=== PATIENT | male | born 1960 | race Caucasian/White ===

== ENCOUNTER 2020-04-03 06:45 | Outpatient (REF) | payer OTHER, SELFPAY | END 2020-04-03 06:46 | disposition home or self-care (01) | LOC: HO.LAB 06:45 | PROVIDERS: Visit Provider Internal Medicine | DX: Z20.828 Contact with and (suspected) exposure to other viral communicable diseases (principal) | CPT/HCPCS: 36415; C9803; U0003 ==

== ENCOUNTER 2020-10-21 09:16 | Emergency (ER) | payer OTHER, SELFPAY ==
--- NOTE | ~2020-10-21 | CT_ITS ---
EXAMINATION: CT ABDOMEN AND PELVIS WITHOUT CONTRAST CLINICAL INFORMATION: Right lower back pain. COMPARISON: None TECHNIQUE: Multidetector volumetric imaging was performed from the superior aspect of the liver through the pubic symphysis. Sagittal and coronal reformatted images were obtained on the technologist's workstation. This CT examination was performed using dose optimization techniques as appropriate, variously including the following: *Automated exposure control *Adjustment of mA and/or kV according to patient size (this includes techniques or standardized protocols for targeted exams where dose is matched to indication/reason for exam; i.e. extremities or head) *Use of iterative reconstruction technique DLP: 1048 mGy-cm FINDINGS: LUNG BASES: The visualized lung bases are unremarkable. No pleural or pericardial effusion. Coronary artery calcification present. LIVER, GALLBLADDER, AND BILIARY TREE: There is a region of calcifications seen within segment 7 of the liver. No intrahepatic bile duct dilatation is noted. The gallbladder is unremarkable with no evidence of radiopaque gallstones, gallbladder wall thickening, or obvious pericholecystic inflammatory changes. PANCREAS: Unremarkable. SPLEEN: Unremarkable. A few splenic calcified granulomas are evident. ADRENAL GLANDS: Unremarkable. KIDNEYS AND URETERS: Right kidney: There is an approximately 8.6 cm simple appearing cyst mid posterior aspect of the right kidney. No hydronephrosis. No hydroureter. No calculi identified. No suspicious solid masses seen. Left kidney: There is an exophytic 1.4 cm cyst midpole laterally. No suspicious solid mass identified. No hydronephrosis or hydroureter. No calculi are identified. BLADDER: Unremarkable. GASTROINTESTINAL TRACT: No dilated loops of large or small bowel. No free air or free fluid. No pericolonic inflammatory change. The appendix is not visualized. ABDOMINAL WALL: No significant hernia is appreciated. LYMPH NODES: No lymphadenopathy identified. VASCULAR: There is moderate calcification of the infrarenal abdominal aorta without evidence of abdominal aortic aneurysm. PELVIC VISCERA: Prostate calcification present. OSSEOUS STRUCTURES: No suspicious destructive bony lesions identified. There is multilevel degenerative disc disease seen most prominent within the lower thoracic and upper lumbar spine with vacuum disc phenomena seen at the L2-L3 level. CT/CT abdomen pelvis wo con IMPRESSION: Old granulomatous disease. No evidence of obstructive uropathy.
[2020-10-21 09:33] VITALS: BP 139/80; PULSE 57; RESP 18; TEMP 35.7; O2SAT 98; BMI 39.5
--- NOTE | 2020-10-21 10:05 | ED.BACK ---
HPI - Back Pain/Injury General Chief Complaint: Back Pain/Injury Stated Complaint: [facility] Time Seen by Provider: 10/21/20 12:00 Source: patient Mode of arrival: ambulatory Limitations: no limitations History of Present Illness HPI Narrative: Patient presents to ED for right lower back pain. Patient thinks might be kidney stones. Patient states pain is worse on movement, heavy lifting, and bending down. Patient denies any nausea, vomiting, fever, chills, dysuria, hematuria, any recent trauma to the abdomen, back, flank. Related Data Previous Rx's Medication Instructions Recorded cyclobenzaprine 10 mg PO TID PRN #28 tab 10/21/20 Allergies Allergy/AdvReac Type Severity Reaction Status Date / Time No Known Allergies Allergy Verified 10/21/20 10:04 Review of Systems Review of Systems: Yes all other systems are reviewed and are negative Constitutional: Constitutional: Reports as per HPI and Reports no additional constitutional complaints Eyes: Eyes: Reports as per HPI and Reports no additional eye complaints ENT: Reports system reviewed and no additional complaints, except as documented and Reports as per HPI Cardiovascular: Cardiovascular: Reports as per HPI and Reports no additional cardiovascular complaints Respiratory: Respiratory: Reports as per HPI and Reports no additional respiratory complaints Gastrointestinal: Gastrointestinal: Reports as per HPI and Reports no additional gastrointestinal complaints Genitourinary: Genitourinary: Reports no additional male genitourinary complaints and Reports as per HPI Musculoskeletal: Musculoskeletal: Reports no additional musculoskeletal complaints, Reports as per HPI and Reports back pain (Right lower back) Neurologic: Reports system reviewed and no additional complaints, except as documented and Reports as per HPI Psychiatric: Psychiatric: Reports no additional psychiatric complaints and Reports as per HPI [facility] Past Medical History Medical History (Updated 10/21/20 @ 12:10 by JORDAN Billings) High cholesterol Social History Social History Advance Directives: Yes Advance Directives Information Provided: Yes Advance Directives on File: No Physical Exam Vital Signs: Vital Signs: Last Vital Signs Temp 96.3 F L 10/21/20 09:33 Pulse 58 10/21/20 10:14 Resp 12 10/21/20 10:14 BP 132/86 10/21/20 10:14 Pulse Ox 98 10/21/20 10:14 Body Mass Index 39.5 Const: General: cooperative, healthy appearing, comfortable, no acute distress, well developed, alert, awake and Physically active Orientation/consciousness: patient oriented x3 HENMT: Head: Yes normal to inspection, Yes No palpable skull fracture present, Yes normocephalic, Yes atraumatic and No abrasion Eyes: General: appearance normal, both eyes and all related structures Neck: Neck: Yes normal visual inspection, Yes full ROM, Yes no lymphadenopathy, Yes no meningeal signs, Yes trachea midline, Yes supple and No tender Chest: Chest palpation & inspection: normal inspection of the chest and normal palpation of entire chest wall Resp: Effort & Inspection: normal respiratory effort and able to speak in complete sentences Cardio: Jugular venous distension: no JVD Heart sounds: S1 normal heart sound present and S2 normal heart sound present GI: Inspection: Yes normal to inspection and No abdominal wall ecchymosis Palpation (GI): Soft to palpation, not firm, nontender, no guarding and not rigid : General: No CVA tenderness and Yes no CVA tenderness Back/Spine/Pelvis: Back: no CVA tenderness, No CVA tenderness and back tenderness Back/spine/pelvis image: 1. Area of tenderness on palpation. Negative for any ecchymosis, or redness. Skin: General skin exam: no rashes or lesions noted and elasticity normal Neuro: General: patient oriented x3, gait normal, no meningeal signs and CN's II-XI intact bilaterally Cranial nerves: Yes CN's II-XII intact bilaterally Extrem: General: Yes normal to inspection and Yes full ROM Psych: Appearance: grossly normal, well kempt and not disheveled Course Course Course Narrative: Low suspicion for kidney stones to patient pain is in lower back and negative for CD of flanks, but due to age will do basic labs sent for trace CT to check for kidney stones or any lumbar radiculopathy Reevaluation(s) Reevaluation #1: Labs negative for elevated white blood cell count. Urine came back negative for any UTI or blood. Chemistry shows normal kidney function. CT scan shows lumbar radiculopathy. CT scan negative for any kidney stones, hydronephrosis, any other abdominal etiology. CT scan shows kidney cyst. Patient made aware of CT readings. Patient may order labs. Patient states he will take his Advil at home. Time: 12:50 MDM - Back Pain/Injury MDM Narrative Medical decision making narrative: Lumbar radiculopathy Lab Data Result diagrams: 10/21/20 10:21 10/21/20 10:21 Labs: Lab Results 10/21/20 10/21/20 10/21/20 Range/Units 09:48 10:21 10:21 WBC 5.8 (4.8-10.8) X10*3/uL RBC 4.34 L (4.60-5.80) X10*6/uL Hgb 13.0 L (14.0-18.0) g/dl Hct 37.3 L (42-52) % MCV 85.9 (80-98) fL MCH 30.0 (27.0-33.0) pg MCHC 34.9 (31.0-36.0) g/dl RDW 12.6 (11.0-16.0) % Plt Count 166 (160-400) X10*3/uL MPV 10.6 (9.4-12.4) fL Immature Gran % (Auto) 0.3 (0.0-0.4) % Neut % (Auto) 65.6 (45-73) % Lymph % (Auto) 23.3 (20-40) % Victoria % (Auto) 8.6 (2-11) % Eos % (Auto) 1.9 (0-4) % Baso % (Auto) 0.3 (0-2) % Lymph # (Auto) 1.4 (1.2-4.9) X10*3/uL Victoria # (Auto) 0.5 (0.1-1.2) X10*3/uL Eos # (Auto) 0.1 (0.0-0.4) X10*3/uL Baso # (Auto) 0.0 (0.0-0.2) X10*3/uL Abs Immat Gran (auto) 0.02 (0.00-0.03) X10*3/uL Absolute Neuts (auto) 3.8 (2.0-8.3) X10*3/uL Absolute Nucleated RBC 0.000 (0.0-0.012) X10*3/uL Nucleated RBC % (auto) 0.0 (0.0-0.2) /100WBC Sodium 139 (135-145) mmol/L Potassium 3.9 (3.3-5.1) mmol/L Chloride 108 (96-108) mmol/L Carbon Dioxide 23 (22-29) mmol/L Anion Gap 12 (12-20) BUN 16 (9-16) mg/dL Creatinine 1.04 (0.5-1.4) mg/dL Estim Creat Clear Calc 107.6 Estimated GFR > 60 Random Glucose 107 (60-115) mg/dL Calcium 9.0 (8.4-10.2) mg/dL Total Bilirubin 0.7 (0.0-1.0) mg/dL AST 19 (5-37) U/L ALT 17 (0-40) U/L Alkaline Phosphatase 72 (39-117) U/L Total Protein 6.3 L (6.5-8.0) g/dL Albumin 4.0 (3.5-5.0) g/dL Urine Color YELLOW Urine Appearance CLEAR Urine pH 6.0 (5.0-8.0) Ur Specific [place] 1.015 (1.005-1.025) Urine Protein NEG (NEG-TRACE) MG/DL Urine Glucose (UA) NEG (NEG) MG/DL Urine Ketones NEG (NEG) MG/DL Urine Blood NEG (NEG) Urine Nitrite NEG (NEG) Ur Leukocyte Esterase NEG (NEG) Urine RBC 0 (0) /HPF Urine WBC 0-2 (0-4) /HPF Ur Squamous Epith Cells NONE /LPF Urine Bacteria NONE /LPF Urine Mucus 1+ /LPF Discharge Plan Discharge Clinical Impression: Lumbar radiculopathy, Back pain Patient Disposition: Home, Self-Care Instructions: Sciatica (ED), Acute Low Back Pain (ED), Lumbar Radiculopathy (ED) Additional Instructions: Your CT scan came back negative for any kidney stones. The CT scan showed lumbar arthritis. Your CT scan shows benign kidney cyst. Your Labs show normal kidney function. Your white blood cell count came back normal. Your urine came back negative for UTI. Return to ED for worsening back pain, urinary/bowel incontinence, flank pain, testicular pain, dysuria, hematuria, abdominal pain, nausea, vomiting, fever, chills, or any other concerning symptoms. Please follow up for PCP Prescriptions: New cyclobenzaprine 10 mg tablet 10 mg PO TID PRN (Reason: pain) Qty: 28 RF: 0 Interventions: ED Discharge Assessment Last Done: 10/21/20 12:44 Discharge Date/Time: 10/21/20 12:45 Print Language: Arabic
[2020-10-21 10:14] VITALS: BP 132/86; PULSE 58; RESP 12; O2SAT 98
[2020-10-21 10:15] LABS: Glucose Urine UA NEG (NEG); Leukocyte Esterase Urine NEG (NEG); Nitrite Urine NEG (NEG); Specific Gravity - Urine 1.015 (1.005-1.025); Urine Blood NEG (NEG); Urine Ketones NEG (NEG); Urine Protein NEG (NEG-TRACE)
[2020-10-21 10:18] LABS: Appearance Urine CLEAR; Color Urine YELLOW
[2020-10-21 10:28] LABS: Mucus Urine 1+ /LPF; RBC Urine 0 /HPF (0); WBC Urine 0-2 /HPF (0-4)
[2020-10-21 10:31] LABS: Basophils Percent Auto 0.3 % (0-2); Eosinophils Absolute Auto 0.1 X10*3/uL (0.0-0.4); Eosinophils Percent Auto 1.9 % (0-4); Hematocrit 37.3 % (42-52); Imm Gran Abs Auto 0.02 X10*3/uL (0.00-0.03); Imm Gran Pct Auto 0.3 % (0.0-0.4); Lymphocytes Absolute Auto 1.4 X10*3/uL (1.2-4.9); Lymphocytes Percent Auto 23.3 % (20-40); Mean Corpuscular HGB Conc 34.9 g/dl (31.0-36.0); Mean Corpuscular Volume 85.9 fL (80-98); Mean Platelet Volume 10.6 fL (9.4-12.4); Monocytes Absolute Auto 0.5 X10*3/uL (0.1-1.2); Monocytes Percent Auto 8.6 % (2-11); Neutrophils Absolute Auto 3.8 X10*3/uL (2.0-8.3); Neutrophils Percent Auto 65.6 % (45-73); Platelet Count 166 X10*3/uL (160-400); Red Blood Count 4.34 X10*6/uL (4.60-5.80); Red Cell Distribution Width 12.6 % (11.0-16.0); White Blood Count 5.8 X10*3/uL (4.8-10.8)
[2020-10-21 10:32] LABS: MANUAL DIFF FLAG NO
[2020-10-21] MEDS: Ketorolac Tromethamine 15 MG/ML VIAL IM ×2 (10:36→10:37)
[2020-10-21 10:54] LABS: Alanine Aminotransferase 17 U/L (0-40); Alkaline Phosphatase 72 U/L (39-117); Anion Gap 12 (12-20); Aspartate Amino Transferase 19 U/L (5-37); Bilirubin Total 0.7 mg/dL (0.0-1.0); Blood Urea Nitrogen 16 mg/dL (9-16); Carbon Dioxide 23 mmol/L (22-29); Chloride 108 mmol/L (96-108); Creatinine Clr Calc Pharmacy 107.6; Estimated Glomerular Filt Rate > 60; Glucose Random 107 mg/dL (60-115); Potassium 3.9 mmol/L (3.3-5.1); Sodium 139 mmol/L (135-145); Total Protein 6.3 g/dL (6.5-8.0)
== END 2020-10-21 12:45 | disposition home or self-care (01) ==
PROVIDERS: Physician Assistant; Emergency Provider Emergency Medicine
DX: M54.5 Low back pain (principal); M54.16 Radiculopathy, lumbar region
CPT/HCPCS: 36415; 74176; 80053; 81001; 85025; 96372; 99284; J1885

== ENCOUNTER 2021-02-22 18:19 | Emergency (ER) | payer OTHER, SELFPAY ==
[2021-02-22 18:24] VITALS: BP 158/97; PULSE 65; RESP 18; TEMP 36.1; O2SAT 99; BMI 37.5
--- NOTE | 2021-02-22 19:05 | ED_ITS ---
HPI - Ear Problem General Chief complaint: Ear Problems Stated complaint: FB in ears Time Seen by Provider: 02/22/21 18:49 Source: patient and family Mode of arrival: ambulatory Limitations: no limitations History of Present Illness HPI Narrative: 61-year-old male with history of hearing loss requiring bilateral hearing aids presents to the ER with small part of the hearing aid stuck in both of his ear canals. He reports in his right ear he has had a small piece of the hearing aid retained in the ear for about 1 month he thinks. It has not been bothering him. He reports for the last 1 week when he removed the hearing aid on the left side he noticed a small piece was also missing. This has happened to him before and he has required evaluation at urgent care clinic where they irrigated the ears and were able to get the pieces out. He denies any drainage from the ears, no bleeding, no change in his hearing from baseline. MD Complaint: foreign body Location: bilateral Duration: constant Severity: mild Relieving factors: nothing Exacerbating factors: nothing Discharge from ear: no Associated symptoms ear: decreased hearing (Chronic) Treatment prior to arrival: none Related Data Previous Rx's Medication Instructions Recorded cyclobenzaprine 10 mg tablet 10 mg PO TID PRN #28 tab 10/21/20 Allergies Allergy/AdvReac Type Severity Reaction Status Date / Time latex Allergy Rash Verified 02/22/21 18:23 Penicillins Allergy Rash Verified 02/22/21 18:23 Review of Systems Review of Systems: Constitutional: No Fever, No Chills ENT/Mouth: +FB in bilateral ears, No ear drainage, +NINILCHIK Cardiovascular: No Chest Pain, No SOB Respiratory: No Cough, No Sputum Gastrointestinal: No Nausea, No Vomiting Musculoskeletal: No joint pain, No Myalgias Skin: No Skin Lesions, No rash Neuro: No Dizziness, No Headache Heme/Lymph: No Lymphadenopathy PMFSH Past Medical History Medical History (Updated 02/22/21 @ 19:06 by JORDAN Hughes) High cholesterol Social History Social History Advance Directives: No Advance Directives Information Provided: No Physical Exam Vital Signs: Vital Signs: Last Vital Signs Temp 97.0 F 02/22/21 18:24 Pulse 65 02/22/21 18:24 Resp 18 02/22/21 18:24 BP 158/97 H 02/22/21 18:24 Pulse Ox 99 02/22/21 18:24 Body Mass Index 37.5 Appearance: Alert. Oriented X3. No acute distress. HEENT: normal external inspection. Bilateral ear canals with visible clear disc like piece of plastic imbedded within the distal ear canal and both ears. No impacted cerumen, no associated inflammatory changes, no bleeding. CVS: Normal heart rate and rhythm. Pulses normal. Respiratory: No respiratory distress. Skin: Skin warm and dry. Normal skin color. Normal skin turgor. No rashes. Extremities: Normal inspection, normal range of motion. Neuro: Oriented X 3. No motor deficit. No sensory deficit. Course Course Course Narrative: 61-year-old male presenting with bilateral ear canals wit retained pieces of hearing aids, left side has been present for 1 week and right-sided has been present for a month or more. No ear pain or sign of infection. Exam reveals visible foreign bodies consistent with pieces of hearing aids. Will attempt removal with alligator forceps Reevaluation(s) Reevaluation #1: Successful removal with alligator forceps of the foreign bodies from both ears. No signs of trauma or bleeding. Patient tolerated well. Stable for discharge home. Procedures FB Removal Ear Location: ear canal (L) Foreign Body Suspected: other plastic TM intact pre-procedure: yes Foreign Body Removed: yes Foreign Body Removal Technique: instrumentation Tympanic Membrane Intact Post Procedure: Yes Patient Tolerated Procedure: well Complications: none Additional Comments: Same procedure was performed on the right side with the same outcome, no complications and tympanic membrane was intact. Critical Care Time Critical Care Time Critical Care Time: No Discharge Plan Discharge Clinical Impression: Foreign body in ear Qualifiers: Encounter type: initial encounter Laterality: unspecified laterality Qualified Code(s): T16.9XXA - Foreign body in ear, unspecified ear, initial encounter Patient Disposition: Home, Self-Care Instructions: Ear Foreign Body (ED) Additional Instructions: Alligator forceps were used to remove the retained hearing aid piece in your ears. There was no signs of trauma, no bleeding after the procedure. Follow-up with your doctor as needed. Prescriptions: No Action cyclobenzaprine 10 mg tablet 10 mg PO TID PRN (Reason: pain) Qty: 28 RF: 0
== END 2021-02-22 19:21 | disposition home or self-care (01) ==
PROVIDERS: Emergency Provider Internal Medicine
DX: T16.2XXA Foreign body in left ear, initial encounter (principal); T16.1XXA Foreign body in right ear, initial encounter; X58.XXXA Exposure to other specified factors, initial encounter
CPT/HCPCS: 69200; 99283; 99284

== ENCOUNTER 2021-10-01 06:20 | Emergency (ER) | payer OTHER, SELFPAY ==
--- NOTE | ~2021-10-01 | XR_ITS ---
EXAMINATION: XR CHEST CLINICAL INFORMATION: Chest pain. COMPARISON: None TECHNIQUE: Frontal view of the chest was obtained. FINDINGS: Lungs are well-inflated and clear. Trachea is midline in position. No interstitial disease, consolidation or mass. No pleural effusion or pneumothorax. Cardiac silhouette and pulmonary vessels are normal in size. The mediastinum and clotilde have normal contour. The visualized bones and upper abdomen are unremarkable. XR/XR chest 1V IMPRESSION: No acute cardiopulmonary abnormality.
[2021-10-01 06:38] VITALS: BP 193/91; PULSE 75; RESP 13; TEMP 36.6; O2SAT 98; BMI 38.7
[2021-10-01 06:42] LABS: Hematocrit 41.6 % (42.0-52.0); Hemoglobin 14.2 g/dl (14.0-18.0); Mean Corpuscular HGB Conc 34.1 g/dl (31.0-36.0); Mean Corpuscular Hemoglobin 29.2 pg (27.0-33.0); Mean Corpuscular Volume 85.6 fL (80.0-98.0); Mean Platelet Volume 10.3 fL (9.4-12.4); Platelet Count 164 X10*3/uL (160-400); Red Blood Count 4.86 X10*6/uL (4.60-5.80); Red Cell Distribution Width 12.5 % (11.0-16.0); White Blood Count 6.8 X10*3/uL (4.8-10.8)
[2021-10-01 06:44] LABS: Prothrombin Time 11.2 SEC (10.0-13.1)
[2021-10-01 06:52] LABS: COVID-19 Test Negative (Negative)
[2021-10-01] MEDS: Aspirin 81 MG TAB.CHEW 324 MG PO (06:54)
--- NOTE | 2021-10-01 06:57 | ECG_ITS ---
Test Reason : CHEST PAIN Blood Pressure : / mmHG Vent. Rate : 080 BPM Atrial Rate : 080 BPM P-R Int : 162 ms QRS Dur : 094 ms QT Int : 394 ms P-R-T Axes : 060 035 057 degrees QTc Int : 454 ms Normal sinus rhythm Nonspecific ST abnormality Abnormal ECG No previous ECGs available Referred By: Cristina Gipson Electronically Signed By:Charli Yap
--- NOTE | 2021-10-01 06:58 | ED_ITS ---
HPI - Chest Pain General Chief Complaint: Chest Pain Stated Complaint: Chest discomfort/Sob Time Seen by Provider: 10/01/21 06:30 Source: patient and family (Spouse) Mode of arrival: ambulatory Limitations: no limitations History of Present Illness HPI narrative: 61 years old male came in for evaluation of CP/SOB. Patient's symptoms started a week ago, feels exertional dyspnea, mild lower extremities swelling, no orthopnea, no PND, also coughing spells that usually triggered by gagging himself after brushing his teeth when patient have the coughing spells he feel lightheadedness and near syncopal episodes, patient also been feeling chest fullness after eating meals in particular breakfast in the morning. Patient admitted to having stress in his job. Patient with history of hypertension he took himself off of the medication few years ago. Related Data Home Medications Medication Instructions Recorded Confirmed rosuvastatin 5 mg tablet 1 tab PO DAILY 10/01/21 10/01/21 Allergies Allergy/AdvReac Type Severity Reaction Status Date / Time latex Allergy Rash Verified 02/22/21 18:23 Penicillins Allergy Rash Verified 02/22/21 18:23 Review of Systems Review of Systems: All other systems are reviewed and are negative Constitutional: Reports as per HPI and Reports no additional constitutional complaints Eyes: Reports as per HPI and Reports no additional eye complaints Reports system reviewed and no additional complaints, except as documented Cardiovascular: Reports as per HPI and Reports no additional cardiovascular complaints Respiratory: Reports as per HPI and Reports no additional respiratory complaints Gastrointestinal: Reports as per HPI and Reports no additional gastrointestinal complaints Genitourinary: Reports no additional female genitourinary complaints Musculoskeletal: Reports no additional musculoskeletal complaints Skin/Breast: Reports system reviewed and no additional complaints, except as docu Psychiatric: Reports no additional psychiatric complaints Endocrine: Reports no additional endocrine complaints Hematologic/Lymphatic: Reports no additional hematologic/lymphatic complaints Allergic/Immunologic: Reports no additional allergic/immunologic complaints Reports system reviewed and no additional complaints, except as documented and Reports Abnormal speech present [facility] Past Medical History Medical History High cholesterol Social History Social History Patient Tobacco Use Status: Never used Tobacco Use of substances other than those prescribed or required for medical reasons: No Advance Directives: No Physical Exam Vital Signs: Vital Signs: Last Vital Signs Temp 97.9 F 10/01/21 13:46 Pulse 56 10/01/21 13:46 Resp 13 10/01/21 13:46 BP 162/86 H 10/01/21 13:46 Pulse Ox 99 10/01/21 13:46 O2 Del Method 10/01/21 13:46 BMI result Body Mass Index 30.1 Vital signs have been reviewed as appeared to be correct. Blood pressure elevated. Heart rate normal. Respiration rate normal. Temperature normal. Oxygen saturation normal. Appearance: Alert. Oriented X3. No acute distress, ap pear anxious. Head: Normal external exam. Normocephalic. Atraumatic. No Robbins signs noted. No raccoon eyes noted Eyes: PERRLA. EOMI. Conjunctiva and sclera normal. Eyelids normal. ENT: TM's Normal. Pharynx normal. Uvula midline. Moist mucous membranes. No trismus noted. No drooling noted. No muffled voice noted. Neck: Normal inspection. Neck supple. FROM. No adenopathy. Thyroid Normal. No meningeal signs. No neck mass noted. CVS: Normal heart rate and rhythm. Heart sound normal. No murmurs noted. Pulses normal throughout. Respiratory: No respiratory distress. Painless inspiration. Breath sounds normal. No wheezes/rales/rhonchi noted. Chest nontender. No accessory muscle usage noted or decreased air movement noted. Abdomen: Soft and nontender. Bowel sounds normal in all 4 quadrants. No distention noted. No organomegaly noted. No visible injury noted. Back: No CVA tenderness. Full range of motion noted. Skin: Skin warm and dry. Normal skin color. Normal skin turgor. No rashes/lesions/lacerations noted. Extremities: No lower extremity edema. Extremities exhibit normal range of motion. Extremities nontender. Neuro: Oriented X 3. Cranial nerve exam: II-XII are grossly intact No motor deficit. No sensory deficit. Reflexes normal. Course Course Course Narrative: Assessment and plan. 61-year-old male came in for evaluation of exertional dyspnea and atypical fullness of the chest after eating, nonspecific ST-T changes with elevated troponin, the case discussed with Dr. Yap from transportation maintenance specialist who recommended to admit the patient for inpatient stress test and blood pressure control. Reevaluation(s) Reevaluation #1: Patient was seen and evaluated by Dr. Yap in the emergency department recommended started the patient on heparin, bedside echo, transferred to [facility]. Dr. Yap is the accepting physician at [facility]. Time: 15:49 MDM - Chest Pain Lab Data Attestation: I reviewed the patient's lab results. Result diagrams: 10/01/21 12:32 10/01/21 06:33 Labs: Lab Results 10/01/21 10/01/21 10/01/21 Range/Units 06:33 06:33 06:33 WBC 6.8 (4.8-10.8) X10*3/uL RBC 4.86 (4.60-5.80) X10*6/uL Hgb 14.2 (14.0-18.0) g/dl Hct 41.6 L (42.0-52.0) % MCV 85.6 (80.0-98.0) fL MCH 29.2 (27.0-33.0) pg MCHC 34.1 (31.0-36.0) g/dl RDW 12.5 (11.0-16.0) % Plt Count 164 (160-400) X10*3/uL MPV 10.3 (9.4-12.4) fL Absolute Nucleated RBC 0.000 (0.0-0.012) X10*3/uL Nucleated RBC % (auto) 0.0 (0.0-0.2) /100WBC PT (10.0-13.1) SEC INR (0.9-1.1) aPTT Heparin Protocol (53-77.9) SEC D-Dimer High Sensitivty NG/ML Sodium 140 (135-145) mmol/L Potassium 3.8 (3.3-5.1) mmol/L Chloride 107 (96-108) mmol/L Carbon Dioxide 25 (22-29) mmol/L Anion Gap 12 (12-20) BUN 16 (9-16) mg/dL Creatinine 1.15 (0.5-1.4) mg/dL Estim Creat Clear Calc 97.7 Estimated GFR > 60 Random Glucose 146 H D (60-115) mg/dL Calcium 9.0 (8.4-10.2) mg/dL Total Bilirubin 0.7 (0.0-1.0) mg/dL AST 18 (5-37) U/L ALT 16 (0-40) U/L Alkaline Phosphatase 73 (39-117) U/L Troponin I High Sens 72.1 H (<3.5-35.0) ng/L Total Protein 6.5 (6.5-8.0) g/dL Albumin 4.2 (3.5-5.0) g/dL COVID-19 ([facility]) (Negative) COVID-19 Clin Com 10/01/21 10/01/21 10/01/21 Range/Units 06:33 06:33 09:35 WBC (4.8-10.8) X10*3/uL RBC (4.60-5.80) X10*6/uL Hgb (14.0-18.0) g/dl Hct (42.0-52.0) % MCV (80.0-98.0) fL MCH (27.0-33.0) pg MCHC (31.0-36.0) g/dl RDW (11.0-16.0) % Plt Count (160-400) X10*3/uL MPV (9.4-12.4) fL Absolute Nucleated RBC (0.0-0.012) X10*3/uL Nucleated RBC % (auto) (0.0-0.2) /100WBC PT 11.2 (10.0-13.1) SEC INR 1.0 (0.9-1.1) aPTT Heparin Protocol (53-77.9) SEC D-Dimer High Sensitivty < 150 NG/ML Sodium (135-145) mmol/L Potassium (3.3-5.1) mmol/L Chloride (96-108) mmol/L Carbon Dioxide (22-29) mmol/L Anion Gap (12-20) BUN (9-16) mg/dL Creatinine (0.5-1.4) mg/dL Estim Creat Clear Calc Estimated GFR Random Glucose (60-115) mg/dL Calcium (8.4-10.2) mg/dL Total Bilirubin (0.0-1.0) mg/dL AST (5-37) U/L ALT (0-40) U/L Alkaline Phosphatase (39-117) U/L Troponin I High Sens 99.4 H (<3.5-35.0) ng/L Total Protein (6.5-8.0) g/dL Albumin (3.5-5.0) g/dL COVID-19 ([facility]) Negative (Negative) COVID-19 Clin Com See Note 10/01/21 10/01/21 Range/Units 12:32 12:32 WBC 6.7 (4.8-10.8) X10*3/uL RBC 4.78 (4.60-5.80) X10*6/uL Hgb 13.9 L (14.0-18.0) g/dl Hct 40.5 L (42.0-52.0) % MCV 84.7 (80.0-98.0) fL MCH 29.1 (27.0-33.0) pg MCHC 34.3 (31.0-36.0) g/dl RDW 12.5 (11.0-16.0) % Plt Count 166 (160-400) X10*3/uL MPV 10.6 (9.4-12.4) fL Absolute Nucleated RBC 0.000 (0.0-0.012) X10*3/uL Nucleated RBC % (auto) 0.0 (0.0-0.2) /100WBC PT 11.5 (10.0-13.1) SEC INR 1.0 (0.9-1.1) aPTT Heparin Protocol 37.6 L (53-77.9) SEC D-Dimer High Sensitivty NG/ML Sodium (135-145) mmol/L Potassium (3.3-5.1) mmol/L Chloride (96-108) mmol/L Carbon Dioxide (22-29) mmol/L Anion Gap (12-20) BUN (9-16) mg/dL Creatinine (0.5-1.4) mg/dL Estim Creat Clear Calc Estimated GFR Random Glucose (60-115) mg/dL Calcium (8.4-10.2) mg/dL Total Bilirubin (0.0-1.0) mg/dL AST (5-37) U/L ALT (0-40) U/L Alkaline Phosphatase (39-117) U/L Troponin I High Sens (<3.5-35.0) ng/L Total Protein (6.5-8.0) g/dL Albumin (3.5-5.0) g/dL COVID-19 ([facility]) (Negative) COVID-19 Clin Com Imaging Data Chest x-ray: Attestation: I personally reviewed and interpreted this imaging study as follows: Radiologist's impression: No acute cardiopulmonary abnormality. ECG Data ECG #1: Attestation: I personally reviewed and interpreted this ECG as follows: Interpretation: Normal sinus rhythm at 60 beats per minute, normal axis deviation, normal intervals, no ST-T changes. Discharge Plan Discharge Clinical Impression: Atypical chest pain, Elevated troponin, NSTEMI (non-ST elevated myocardial infarction) Patient Disposition: [facility] Transfer Details: [facility] Prescriptions: No Action rosuvastatin 5 mg tablet 1 tab PO DAILY
[2021-10-01 06:59] LABS: Troponin-I High Sensitivity 72.1 ng/L (<3.5-35.0)
--- NOTE | 2021-10-01 07:00 | CA_ITS ---
Transthoracic Echocardiogram Patient (Last, First, Middle): Valentino Noe, Gender: Male Date of : 1960 Age: 61 Procedure Date: 10/01/2021 Procedure Type: Transthoracic Echocardiogram Location: ER Height: 185.42 cm Weight: 124.74 kg BSA: 2.46 m2 Heart Rate: 56 bpm BP: 161 / 84 mmHg [employer]er [employer] Head: Referring MD: Charli Yap MD [place] [employer]ried Salt: Charli Yap MD Symptoms: VOGEL Study Quality: Fair/Contrast ECG Rhythm: Bradycardia Conclusions: - Normal left ventricular size and systolic function. There is moderately increased left ventricular wall thickness. The visually estimated ejection fraction is between 55-60%. - There is no evidence of regional wall motion abnormalities. - E/E prime ratio is between 8 and 15 consistent with indeterminate filling pressures. - Normal right ventricular cavity size and systolic function. - There is mild dilatation of the sinuses of Valsalva measuring 3.70 cm and mild dilatation of the ascending aorta measuring 3.80 cm. Findings Procedure Information Contrast agent, definity, is being given per protocol without apparent complications. Left Ventricle Normal left ventricular size and systolic function. There is moderately increased left ventricular wall thickness. The visually estimated ejection fraction is between 55-60%. There is no evidence of regional wall motion abnormalities. Abnormal diastolic function is noted. Spectral Doppler is indicative of an impaired relaxation filling pattern. E/E prime ratio is between 8 and 15 consistent with indeterminate filling pressures. Right Ventricle Normal right ventricular cavity size and systolic function. Atria The left atrium is normal in size. Aortic Valve The aortic valve structure and function is likely normal. There is no aortic valve stenosis. There is no aortic valve regurgitation. Mitral Valve Normal mitral valve structure and function. There is mild mitral valve regurgitation. There is no mitral valve stenosis. Pulmonic Valve The pulmonic valve is likely normal. Tricuspid Valve Likely normal tricuspid valve structure and function. There is mild tricuspid valve regurgitation. Tricuspid regurgitation envelope is inadequate for calculation of right ventricular systolic pressure. Normal right atrial pressure. Great Vessels There is mild dilatation of the sinuses of Valsalva measuring 3.70 cm and mild dilatation of the ascending aorta measuring 3.80 cm. The visualized portions of the pulmonary artery and branches are normal. Venous The inferior vena cava is normal in size and collapses greater than 50% with inspiration. Pericardium/Pleural There is no evidence of pericardial effusion. Prior Study Comparison No prior study available for comparison. Measurements 2D Linear Measurements IVSd: 1.38 0.6-0.9/0.6-1.0 cm LVIDd: 4.22 3.9-5.3/4.2-5.9 cm LVIDd Index: 1.72 2.4-3.2/2.2-3.1 cm/m2 LVIDs: 2.83 2.0-3.6 cm LVPWd: 1.30 0.7-1.1 cm Ao Root: 0.00 2.1-3.5 cm LA Diam: 4.90 2.7-3.8/3.0-4.0 cm LAIDs Index: 1.99 1.5-2.3 cm/m2 LV Mass: 263.49 67-162/88-224 g LV Mass Index: 107.11 43-95/49-115 g/m2 LVOT Diam: 2.50 3.0+(-)1.3 cm Mitral Valve MV Pk E: 0.67 MV PK A: 0.94 MV Decel Time: 221.00 E/A: 0.70 E'Lateral: 6.85 E'Medial: 4.57 E/E' Med: 14.70 E/E' Lat: 9.80 PHT: 65.00 MVA PHT: 3.38 Decel [place]: 3.04 Aortic Valve AoV Pk Quinn: 1.31 AoV Mn Quinn: 0.86 AoV VTI: 0.30 AoV Pk Grad: 7.00 Aov Mn Grad: 4.00 ESTEBAN Cont.VTI: 3.13 LVOT LVOT Pk Quinn: 0.83 LVOT Mn Quinn: 0.57 LVOT VTI: 0.19 LVOT Pk Grad: 3.00 LVOT Mn Grad: 1.00 LVOT Diam: 2.50 LVOT Area: 4.91 Diastolic Function MV Pk E: 0.67 MV Pk A: 0.94 E/A: 0.70 E'Medial: 4.57 E/E' Med: 14.70 E' Laterial: 6.85 E/E' Lat: 9.80 Right Ventricle TAPSE (mm): 23.10 TVS' Quinn: 15.90 Tricuspid Valve TR Pk Quinn: 2.06 TR Pk Grad: 17.00 Great Vessels Aorta Ao Root-2D: 0.00 2.0-3.7 cm Sinus of Valsalva: 3.70 2.0-3.5 cm Ao Asc: 3.80 2.1-3.4 cm Pulmonary Valve PV Pk Quinn: 1.26 Peak PV Grad: 6.00 Updated in Other Vendor System with Status of Final Charli Yap MD electronically signed on 10/01/2021 9:28:12 PM with status of Final
[2021-10-01 07:16] LABS: D Dimer High Sensitivity < 150 NG/ML
[2021-10-01 07:33] LABS: Alanine Aminotransferase 16 U/L (0-40); Albumin Level 4.2 g/dL (3.5-5.0); Alkaline Phosphatase 73 U/L (39-117); Anion Gap 12 (12-20); Aspartate Amino Transferase 18 U/L (5-37); Bilirubin Total 0.7 mg/dL (0.0-1.0); Blood Urea Nitrogen 16 mg/dL (9-16); Carbon Dioxide 25 mmol/L (22-29); Chloride 107 mmol/L (96-108); Creatinine Clr Calc Pharmacy 97.7; Estimated Glomerular Filt Rate > 60; Glucose Random 146 mg/dL (60-115); Potassium 3.8 mmol/L (3.3-5.1); Sodium 140 mmol/L (135-145); Total Protein 6.5 g/dL (6.5-8.0)
--- NOTE | 2021-10-01 07:55 | ECG_ITS ---
Test Reason : chest pain Blood Pressure : / mmHG Vent. Rate : 060 BPM Atrial Rate : 060 BPM P-R Int : 164 ms QRS Dur : 096 ms QT Int : 434 ms P-R-T Axes : 058 029 011 degrees QTc Int : 434 ms Normal sinus rhythm Normal ECG When compared with ECG of 01-OCT-2021 06:27, No significant changes seen Referred By: Cristina Gipson Electronically Signed By:Charli Yap
[2021-10-01 10:00] VITALS: BP 161/84; PULSE 61
[2021-10-01 10:03] LABS: Troponin-I High Sensitivity 99.4 ng/L (<3.5-35.0)
--- NOTE | 2021-10-01 11:22 | P.CONCA_ITS ---
History of Present Illness History of Present Illness Date of Service: 10/01/21 Requesting physician: Cristina Gipson Chief complaint: Shortness of breath, NSTEMI Narrative: Pleasant 61-year-old gentleman who is presenting with shortness of breath ongoing for last 2 weeks. He said last year he had COVID-19 infection and was short of breath but recovered after medication adjustment. He has background history of hyperlipidemia and hypertension. It appears he was on lisinopril at 1 stage but due to dry cough he stops taking the medication. He also had some trouble with statins in the past and stop taking them. Recently he was started on rosuvastatin and baby aspirin and he has been taking them regularly. Over the last 2 weeks he has noticed shortness of breath with exertion. He has noticed this clearly going up stairs and also walking on a plain surface. This is a new symptom for him. He also has noticed for abdominal discomfort when he is doing activities. With these symptoms he presented to [facility]. His blood pressure was elevated. His 1st troponin was 72 in 2nd was 99. EKG did not show any significant changes. Discussing with him he had sudden cardiac his mother from acute [place] at age 57. He also has an older brother who just underwent multivessel PCI at [facility]. Denying any bleeding issues. He has a latex allergy. Does not smoke or drink. [facility] Past Medical History Medical History High cholesterol Social History Social History Patient Tobacco Use Status: Never used Tobacco Use of substances other than those prescribed or required for medical reasons: No Advance Directives: No Meds Allergies Allergy/AdvReac Type Severity Reaction Status Date / Time latex Allergy Rash Verified 02/22/21 18:23 Penicillins Allergy Rash Verified 02/22/21 18:23 Home Medications Medication Instructions Recorded Confirmed Last Taken Type rosuvastatin 5 mg tablet 1 tab PO DAILY 10/01/21 10/01/21 Unknown History Physical Exam Vital Signs: Vital Signs: Last Vital Signs Temp 97.8 F 10/01/21 06:38 Pulse 61 10/01/21 10:00 Resp 13 10/01/21 06:38 BP 161/84 H 10/01/21 10:00 Pulse Ox 98 10/01/21 06:38 O2 Del Method 10/01/21 06:38 BMI result Body Mass Index 38.7 GENERAL APPEARANCE: in no acute distress, pleasant. NECK: no carotid bruit, no jugular venous distention. SKIN: Vitiligo. HEART: no murmurs, regular rate and rhythm. LUNGS: clear to auscultation bilaterally. ABDOMEN: soft, nontender. EXTREMITIES: no edema. PERIPHERAL PULSES: equal. NEUROLOGIC: No gross deficits, AAO X 3 Objective Labs and Meds Result diagrams: 10/01/21 12:32 10/01/21 06:33 Lab results: Laboratory Results - last 24 hr 10/01/21 10/01/21 10/01/21 06:33 06:33 06:33 WBC 6.8 RBC 4.86 Hgb 14.2 Hct 41.6 L MCV 85.6 MCH 29.2 MCHC 34.1 RDW 12.5 Plt Count 164 MPV 10.3 Absolute Nucleated RBC 0.000 Nucleated RBC % (auto) 0.0 PT INR D-Dimer High Sensitivty Sodium 140 Potassium 3.8 Chloride 107 Carbon Dioxide 25 Anion Gap 12 BUN 16 Creatinine 1.15 Estim Creat Clear Calc 97.7 Estimated GFR > 60 Random Glucose 146 H D Calcium 9.0 Total Bilirubin 0.7 AST 18 ALT 16 Alkaline Phosphatase 73 Troponin I High Sens 72.1 H Total Protein 6.5 Albumin 4.2 COVID-19 ([facility]) COVID-19 Clin Com 10/01/21 10/01/21 10/01/21 06:33 06:33 09:35 WBC RBC Hgb Hct MCV MCH MCHC RDW Plt Count MPV Absolute Nucleated RBC Nucleated RBC % (auto) PT 11.2 INR 1.0 D-Dimer High Sensitivty < 150 Sodium Potassium Chloride Carbon Dioxide Anion Gap BUN Creatinine Estim Creat Clear Calc Estimated GFR Random Glucose Calcium Total Bilirubin AST ALT Alkaline Phosphatase Troponin I High Sens 99.4 H Total Protein Albumin COVID-19 ([facility]) Negative COVID-19 Clin Com See Note Imaging Radiologist's impression: Impressions Chest X-Ray 10/01/21 08:15 IMPRESSION: No acute cardiopulmonary abnormality. Assessment and Plan (1) NSTEMI (non-ST elevated myocardial infarction): Status: Acute Plan Pleasant 61-year-old gentleman who presenting with shortness of breath, upper abdominal discomfort and mildly abnormal troponin levels. Clinical story is suspicious for underlying coronary disease and he has ruled in for non ST elevation [place]. his blood pressure is elevated and he has not been taking medications at home. His blood pressures were as high as 190 systolic in the ER. He has risk factors for coronary disease including hyperlipidemia, hypertension and known history of coronary disease in the family. We had a detailed discussion about treatment options. After discussion we have decided to transfer him to [facility] for coronary angiography tomorrow. He has been started on heparin drip. He was loaded with 324 mg of aspirin and should stay on 81 mg aspirin going forward till he has cardiac catheterization. His blood pressure is elevated and I have added carvedilol 3.125 mg twice a day and isosorbide mononitrate 30 mg once a day to his regimen. We will check echocardiogram to assess for any wall motion abnormality or cardiomyopathy. We will follow along with you. Thank you for allowing me to participate in the care of your patient. Please feel free to contact me if you have any questions. Procedures Date of Service Date of Service: 10/01/21
[2021-10-01 12:23] VITALS: BMI 30.1
[2021-10-01 12:40] LABS: Hematocrit 40.5 % (42.0-52.0); Hemoglobin 13.9 g/dl (14.0-18.0); Mean Corpuscular HGB Conc 34.3 g/dl (31.0-36.0); Mean Corpuscular Hemoglobin 29.1 pg (27.0-33.0); Mean Corpuscular Volume 84.7 fL (80.0-98.0); Mean Platelet Volume 10.6 fL (9.4-12.4); Platelet Count 166 X10*3/uL (160-400); Red Blood Count 4.78 X10*6/uL (4.60-5.80); Red Cell Distribution Width 12.5 % (11.0-16.0); White Blood Count 6.7 X10*3/uL (4.8-10.8)
[2021-10-01 12:50] LABS: Prothrombin Time 11.5 SEC (10.0-13.1)
[2021-10-01 12:53] LABS: PTT Heparin Drip 37.6 SEC (53-77.9)
[2021-10-01] MEDS: Aspirin Enteric Coated 81 MG TABLET.DR PO (13:15)
[2021-10-01] MEDS: Heparin Sodium,Porcine 5,000 UNIT/ML VIAL 4000 UNIT IVPUSH (13:16)
[2021-10-01] MEDS: Heparin Sodium,Porcine/1/2NS 25,000 UNIT/250 ML IV.SOLN 10.36 UNIT IVCONT (13:20)
[2021-10-01 13:46] VITALS: BP 162/86; PULSE 56; RESP 13; TEMP 36.6; O2SAT 99
[2021-10-01] MEDS: Isosorbide Mononitrate 30 MG TAB.ER.24H PO (13:59)
--- NOTE | 2021-10-01 14:47 | PC.NURSE ---
nitesh sent to dominik about dispo for patient
== END 2021-10-01 16:15 | disposition short-term general hospital (02) ==
PROVIDERS: Emergency Provider Emergency Medicine
DX: I21.4 Non-ST elevation (NSTEMI) myocardial infarction (principal); R77.8 Other specified abnormalities of plasma proteins; R07.89 Other chest pain; R06.02 Shortness of breath; Z20.822 Contact with and (suspected) exposure to COVID-19; Z79.899 Other long term (current) drug therapy
CPT/HCPCS: 36415; 71045; 80053; 84484; 85027; 85379; 85610; 85730; 87635; 93005; 93306; 96374; 96376; 99285; Q9957

== ENCOUNTER 2021-11-09 08:25 | Emergency (ER) | payer OTHER, SELFPAY ==
[2021-11-09 08:28] VITALS: BP 145/82; PULSE 62; RESP 20; TEMP 36.2; O2SAT 98; BMI 33.9
[2021-11-09 09:03] LABS: Appearance Urine CLOUDY; Color Urine BROWN; Glucose Urine UA NEG (NEG); Leukocyte Esterase Urine NEG (NEG); Nitrite Urine NEG (NEG); Specific Gravity - Urine >= 1.030 (1.005-1.025); UACC Culture Trigger NO; Urine Blood 3+ (NEG); Urine Ketones 5 MG/DL (NEG); Urine Protein 2+ MG/DL (NEG-TRACE)
--- NOTE | 2021-11-09 09:20 | ED_ITS ---
HPI - Male Genitourinary General Chief complaint: Urogenital-Male Stated complaint: blood in urine Time Seen by Provider: 11/09/21 08:53 Source: patient and family Mode of arrival: ambulatory Limitations: no limitations History of Present Illness HPI Narrative: 61 yo male with history of CAD s/p NSTEMI one month ago s/p stent who presents to the ER for new onset hematuria that started today when he woke up. He r eports he had dark brown urine with tiny red clots when he urinated this morning. He denies any dysuria, abdominal pain, nausea, vomiting, fever, chills. He reports since 1 month ago when he was started on aspirin and Brilinta he has had intermittent bouts of pink and light brown urine but never to this extent. Prior to initiation of the antiplatelet medications he had never had any urinary symptoms before. He denies any flank pain. He reports on 2nd void of the day today it is starting to clear little but, remains brown. He otherwise is feeling well. He has lost about 20 lb since his OK, walks about 1 hour a day but denies any vigorous exercise. Complaint: other (hematuria) Onset (ago): hour(s) Duration: intermittent Severity: moderate Relieving factors: none Exacerbating factors: urination Associated symptoms: Reports blood in urine Related Data Home Medications Medication Instructions Recorded Confirmed rosuvastatin 5 mg tablet 1 tab PO DAILY 10/01/21 10/01/21 Allergies Allergy/AdvReac Type Severity Reaction Status Date / Time latex Allergy Rash Verified 02/22/21 18:23 Penicillins Allergy Rash Verified 02/22/21 18:23 Review of Systems Review of Systems: Constitutional: No Fever, No Chills ENT/Mouth: No sore throat, No Rhinorrhea Cardiovascular: No Chest Pain, No SOB Respiratory: No Cough, No Sputum Gastrointestinal: No Nausea, No Vomiting, No Diarrhea, No abdominal Pain Genitourinary: No Dysuria, No Urinary Frequency, + Hematuria Musculoskeletal: No joint pain, No Myalgias Skin: No Skin Lesions, No rash Neuro: No Weakness, No Numbness, No Dizziness, No Headache Psych: + Anxiety/Panic, No Depression Heme/Lymph: No Bruising, No Lymphadenopathy Endocrine: No Polyuria, No Polydipsia PMFSH Past Medical History Medical History High cholesterol Social History Social History Patient Tobacco Use Status: Never used Tobacco Advance Directives: Yes Advance Directives Information Provided: Yes Advance Directives on File: No Physical Exam Vital Signs: Vital Signs: Last Vital Signs Temp 97.2 F 11/09/21 08:28 Pulse 62 11/09/21 08:28 Resp 20 11/09/21 08:28 BP 145/82 H 11/09/21 08:28 Pulse Ox 98 11/09/21 08:28 O2 Del Method 11/09/21 08:28 BMI result Body Mass Index 33.9 Appearance: Alert. Oriented X3. No acute distress. Eyes: Pupils equal, round and reactive to light. ENT: Pharynx normal. Neck: Normal inspection. Neck supple. CVS: Normal heart rate and rhythm. Pulses normal. Respiratory: No respiratory distress. Breath sounds normal. Abdomen: Soft and nontender. +BS x4 Skin: Skin warm and dry. Normal skin color. Normal skin turgor. No rashes. Extremities: No lower extremity edema. Neuro: Oriented X 3. No motor deficit. No sensory deficit. Course Course Course Narrative: 61-year-old male with history of a recent OK and coronary stent, started on aspi rin and Brilinta 1 month ago presents to the ER with new onset of atraumatic, asymptomatic hematuria. His urinalysis today is showing gross hematuria without any evidence of infection. He has no symptoms of infection. He is afebrile. He had CT scan 1 year ago that showed a normal bladder. He has no flank pain. One year ago he had no blood on his UA, no microscopic hematuria history. No smoking history. At this time comfortable with discharge home with plan to increase his oral fluid intake today, follow up with his primary care doctor and Urology. Patient was giving return precautions and will return if new or worsening symptoms. He and his were in agreement with plan and her stable for discharge home. Case discussed with Dr. Holt. MDM - Male Genitourinary Lab Data Labs: Lab Results 11/09/21 Range/Units 08:45 Urine Color BROWN A Urine Appearance CLOUDY Urine pH 5.0 (5.0-8.0) Ur Specific Center >= 1.030 H (1.005-1.025) Urine Protein 2+ H (NEG-TRACE) MG/DL Urine Glucose (UA) NEG (NEG) MG/DL Urine Ketones 5 (NEG) MG/DL Urine Blood 3+ H (NEG) Urine Nitrite NEG (NEG) Ur Leukocyte Esterase NEG (NEG) Urine RBC 76-150 H (0) /HPF Urine WBC 0 (0-4) /HPF Ur Squamous Epith Cells 2+ /LPF Urine Bacteria NONE /LPF Urine Mucus 2+ /LPF Critical Care Time Critical Care Time Critical Care Time: No Discharge Plan Discharge Clinical Impression: Hematuria Patient Disposition: Home, Self-Care Instructions: Hematuria (ED) Additional Instructions: Increase your oral fluid intake to help flush out her kidneys. Recommend following up with the urologist, name and number below. If you develop new or worsening symptoms call 911 or come back to the ER for further evaluation. Prescriptions: No Action rosuvastatin 5 mg tablet 1 tab PO DAILY Referrals: Isidro Cantu MD [Physician] - (hematuria ) Interventions: ED Discharge Assessment Last Done: 11/09/21 10:16 Discharge Date/Time: 11/09/21 10:17
[2021-11-09 09:22] LABS: Mucus Urine 2+ /LPF; Squamous Epithelial Cell Urine 2+ /LPF; WBC Urine 0 /HPF (0-4)
== END 2021-11-09 10:17 | disposition home or self-care (01) ==
PROVIDERS: Emergency Provider Student in an Organized Health Care Education/Training Program; PCP Internal Medicine
DX: R31.9 Hematuria, unspecified (principal); E78.5 Hyperlipidemia, unspecified; I25.2 Old myocardial infarction; Z79.02 Long term (current) use of antithrombotics/antiplatelets; Z95.5 Presence of coronary angioplasty implant and graft
CPT/HCPCS: 81001; 81003; 99282

== ENCOUNTER 2021-12-03 02:50 | Emergency (ER) | payer OTHER, SELFPAY ==
--- NOTE | ~2021-12-03 | CT_ITS ---
EXAMINATION: CT ABDOMEN AND PELVIS WITHOUT CONTRAST CLINICAL INFORMATION: Flank pain COMPARISON: 10/01/2020 TECHNIQUE: Multidetector volumetric imaging was performed from the superior aspect of the liver through the pubic symphysis. Sagittal and coronal reformatted images were obtained on the technologist's workstation. This CT examination was performed using dose optimization techniques as appropriate, variously including the following: *Automated exposure control *Adjustment of mA and/or kV according to patient size (this includes techniques or standardized protocols for targeted exams where dose is matched to indication/reason for exam; i.e. extremities or head) *Use of iterative reconstruction technique DLP: 844 mGy-cm FINDINGS: LUNG BASES: The visualized lung bases are unremarkable. Coronary artery calcifications are present. LIVER, GALLBLADDER, AND BILIARY TREE: The liver is normal in size, shape, and attenuation. Redemonstrated right hepatic lobe calcification. No biliary ductal dilatation is present. The gallbladder is unremarkable with no evidence of radiopaque gallstones, gallbladder wall thickening, or obvious pericholecystic inflammatory changes. PANCREAS: Unremarkable. SPLEEN: Unremarkable. ADRENAL GLANDS: Unremarkable. KIDNEYS AND URETERS: There is a 2 mm calculus at the right ureterovesicular junction with minimal right hydronephrosis. There is mild asymmetric prominence of right-sided perinephric stranding. Redemonstrated right renal cyst measuring approximately 8.2 cm. Small cyst off the lateral left kidney. No follow-up required for simple cysts. No left hydronephrosis. BLADDER: Nearly empty and not adequately evaluated. GASTROINTESTINAL TRACT: No evidence of bowel obstruction or significant wall thickening. No free fluid or free air is seen. ABDOMINAL WALL: Small bilateral fat-containing inguinal hernias. LYMPH NODES: Normal. VASCULAR: There is atherosclerotic calcification along the aorta and iliac arteries. PELVIC VISCERA: Unremarkable. OSSEOUS STRUCTURES: Degenerative changes in the spine. CT/CT abdomen pelvis wo IV con IMPRESSION: Right ureterovesicular junction calculus measuring 2 mm with minimal hydronephrosis.
[2021-12-03 04:30] VITALS: BP 151/90; PULSE 64; RESP 16; TEMP 35.8; O2SAT 99; BMI 33.0
[2021-12-03 04:44] LABS: Appearance Urine Turbid; Color Urine Red; Glucose Urine UA Negative (Negative); Leukocyte Esterase Urine Small (1+) (Negative); Nitrite Urine Negative (Negative); Specific Gravity - Urine 1.025 (1.005-1.025); Urine Blood Large (3+) (Negative); Urine Ketones >=160 mg/dL (Negative); Urine Protein 100 (2+) mg/dL (Neg-Trace)
[2021-12-03 04:54] LABS: Bacteria Urine None Seen (None Seen); RBC Urine >20 /HPF (0-2); UACC Culture Trigger YES
[2021-12-03 06:00] VITALS: BP 137/73; PULSE 60; RESP 16; TEMP 36.6; O2SAT 98
--- NOTE | 2021-12-03 06:44 | ECG_ITS ---
Test Reason : flank pain Blood Pressure : / mmHG Vent. Rate : 050 BPM Atrial Rate : 050 BPM P-R Int : 170 ms QRS Dur : 090 ms QT Int : 438 ms P-R-T Axes : 051 027 022 degrees QTc Int : 399 ms Sinus bradycardia Otherwise normal ECG When compared with ECG of 01-OCT-2021 07:55, Heart rate has decreased Referred By: Alex Jones Electronically Signed By:NADIRA CRAWFORD
--- NOTE | 2021-12-03 06:45 | ED.ABDPAIN ---
HPI - Abdominal Pain General Chief Complaint: Abdominal Pain Stated Complaint: kidney stone, pain Time Seen by Provider: 12/03/21 06:08 Source: patient Mode of arrival: ambulatory Limitations: no limitations History of Present Illness HPI narrative: Rt flank pain since last night pain is better now ,he was diaphoretic with nausea,denies fever and chills MD elicited complaint: flank pain Pertinent past history: other (cad) Onset (ago): day(s) (1 Day) Pain Consistency: constant Quality: aching Radiation: R flank Migration to: no migration Exacerbating factors: nothing Related Data Home Medications Medication Instructions Recorded Confirmed aspirin 81 mg tablet,delayed 81 mg PO DAILY 11/18/21 11/18/21 release (Adult Low Dose Aspirin) carvedilol 3.125 mg tablet 3.125 mg PO BID 11/18/21 11/18/21 isosorbide mononitrate 30 mg 30 mg PO DAILY 11/18/21 11/18/21 tablet,extended release 24 hr multivitamin 1 tab PO DAILY 11/18/21 11/18/21 rosuvastatin 20 mg tablet 20 mg PO DAILY 11/18/21 11/18/21 Previous Rx's Medication Instructions Recorded ticagrelor 90 mg tablet (Brilinta) 90 mg PO BID #120 tabs 11/18/21 oxycodone 5 mg tablet 5 mg PO Q6H PRN pain #15 tabs 12/03/21 Allergies Allergy/AdvReac Type Severity Reaction Status Date / Time latex Allergy Rash Verified 11/18/21 16:03 Penicillins Allergy Rash Verified 11/18/21 16:03 Review of Systems Constitutional: Reports no additional constitutional complaints Cardiovascular: Reports no additional cardiovascular complaints Respiratory: Reports no additional respiratory complaints [facility] Past Medical History Medical History (Updated 12/03/21 @ 08:38 by Alex Jones MD) High cholesterol Surgical History H/O surgical amputation of finger History of appendectomy History of cardiac cath Family History Family History Mother Heart attack Father No problems noted. Brother Heart disease H/O heart artery stent Social History Social History Alcohol intake: never Patient Tobacco Use Status: Never used Tobacco Use of substances other than those prescribed or required for medical reasons: No Advance Directives: No Advance Directives Information Provided: Yes Physical Exam ED Vital Signs: Vital Signs - 24 hr 12/03/21 04:30 12/03/21 06:00 12/03/21 08:12 Temperature 96.4 F L 97.9 F Pulse Rate 64 60 56 Respiratory Rate 16 16 16 Blood Pressure 151/90 H 137/73 140/78 H Pulse Oximetry 99 98 97 Oxygen Delivery Method Room Air Room Air Room Air BMI result Body Mass Index 33.0 Const General: cooperative Nutritional Appearance: average body habitus Orientation/consciousness: patient oriented x3 HENMT Head: Yes No palpable skull fracture present Face and sinus: Yes normal facial exam Mouth: Normal oral and palatal mucosa present Neck Neck: Yes full ROM Thyroid: Thyroid normal Chest Chest palpation & inspection: normal inspection of the chest Resp Effort & Inspection: normal respiratory effort Percussion: percussion normal Cardio Jugular venous distension: no JVD Rate: regular rate Rhythm: regular rhythm GI Other: Rt flank tenderness minimal Auscultation: normal bowel sounds Skin General skin exam: elasticity normal and turgor normal Lesions: no lesions Rashes: no rashes Neuro General: patient oriented x3 Course Reevaluation(s) Reevaluation #1: Re-examined 08:35 is doing much better he has no pain will be discharged home he already has an appointment with the urologist MDM - Abdominal Pain Lab Data Result diagrams: 12/03/21 07:32 12/03/21 07:32 Labs: Lab Results 12/03/21 12/03/21 12/03/21 Range/Units 04:35 07:32 07:32 WBC 7.3 (4.8-10.8) X10*3/uL RBC 4.74 (4.60-5.80) X10*6/uL Hgb 14.1 (14.0-18.0) g/dl Hct 41.7 L (42.0-52.0) % MCV 88.0 (80.0-98.0) fL MCH 29.7 (27.0-33.0) pg MCHC 33.8 (31.0-36.0) g/dl RDW 13.2 (11.0-16.0) % Plt Count 148 L (160-400) X10*3/uL MPV 11.1 (9.4-12.4) fL Immature Gran % (Auto) 0.1 (0.0-0.4) % Neut % (Auto) 87.3 H (45-73) % Lymph % (Auto) 7.9 L (20-40) % [place] % (Auto) 4.4 (2-11) % Eos % (Auto) 0.0 (0-4) % Baso % (Auto) 0.3 (0-2) % Lymph # (Auto) 0.6 L (1.2-4.9) X10*3/uL [place] # (Auto) 0.3 (0.1-1.2) X10*3/uL Eos # (Auto) 0.0 (0.0-0.4) X10*3/uL Baso # (Auto) 0.0 (0.0-0.2) X10*3/uL Abs Immat Gran (auto) 0.01 (0.00-0.03) X10*3/uL Absolute Neuts (auto) 6.4 (2.0-8.3) x10*3/uL Absolute Nucleated RBC 0.000 (0.0-0.012) X10*3/uL Nucleated RBC % (auto) 0.0 (0.0-0.2) /100WBC Sodium 140 (135-145) mmol/L Potassium 4.7 D (3.3-5.1) mmol/L Chloride 108 (96-108) mmol/L Carbon Dioxide 22 (22-29) mmol/L Anion Gap 15 (12-20) BUN 17 H (9-16) mg/dL Creatinine 1.09 (0.5-1.4) mg/dL Estim Creat Clear Calc 95.1 Estimated GFR > 60 Random Glucose 126 H (60-115) mg/dL Calcium 9.1 (8.4-10.2) mg/dL Total Bilirubin 0.9 (0.0-1.0) mg/dL AST 21 (5-37) U/L ALT 22 (0-40) U/L Alkaline Phosphatase 63 (39-117) U/L Total Protein 6.3 L (6.5-8.0) g/dL Albumin 4.1 (3.5-5.0) g/dL Urine Color Red A Urine Appearance Turbid Urine pH 6.0 (5.0-9.0) Ur Specific [place] 1.025 (1.005-1.025) Urine Protein 100 (2+) H (Neg-Trace) mg/dL Urine Glucose (UA) Negative (Negative) mg/dL Urine Ketones >=160 (Negative) mg/dL Urine Blood Large (3+) H (Negative) Urine Nitrite Negative (Negative) Ur Leukocyte Esterase Small (1+) H (Negative) Urine RBC >20 H (0-2) /HPF Urine WBC 6-10 H (0-5) /HPF Ur Squamous Epith Cells 6-10 (0-2) /HPF Urine Bacteria None Seen (None Seen) Hyaline Casts 3-5 (0-2) /LPF Imaging Data CT scan - abdomen: Radiologist's impression: hric stranding. Redemonstrated right renal cyst measuring approximately 8.2 cm. Small cyst off the lateral left kidney. No follow-up required for simple cysts. No left hydronephrosis. BLADDER: Nearly empty and not adequately evaluated.? GASTROINTESTINAL TRACT: No evidence of bowel obstruction or significant wall thickening. No free fluid or free air is seen.? ABDOMINAL WALL: Small bilateral fat-containing inguinal hernias.? LYMPH NODES: Normal. VASCULAR: There is atherosclerotic calcification along the aorta and iliac arteries. PELVIC VISCERA: Unremarkable.? OSSEOUS STRUCTURES: Degenerative changes in the spine.? CT/CT abdomen pelvis wo IV con IMPRESSION: Right ureterovesicular junction calculus measuring 2 mm with minimal hydronephrosis.? ? Dictated By: Ray Hobson MD Signed By: <Electronically signed by Ray Hobson MD in OV> 12/03/21 0658 Discharge Plan Discharge Clinical Impression: Renal colic on right side Patient Disposition: Home, Self-Care Instructions: Kidney Stones (ED) Prescriptions: New oxycodone 5 mg tablet 5 mg PO Q6H PRN (Reason: pain) Qty: 15 0RF Rx Instructions: partial filing upon pt request; Partial Fill upon patient request. No Action rosuvastatin 20 mg tablet 20 mg PO DAILY carvedilol 3.125 mg tablet 3.125 mg PO BID isosorbide mononitrate 30 mg tablet extended release 24 hr 30 mg PO DAILY aspirin [Adult Low Dose Aspirin] 81 mg tablet,delayed release (DR/EC) 81 mg PO DAILY multivitamin Tablet 1 tab PO DAILY Brilinta 90 mg tablet 90 mg PO BID Qty: 120 3RF Referrals: Isidro Cantu MD [Physician] - 1 week Interventions: ED Discharge Assessment Last Done: 12/03/21 09:02 Discharge Date/Time: 12/03/21 09:03
[2021-12-03 07:37] LABS: MANUAL DIFF FLAG NO
[2021-12-03 07:38] LABS: Basophils Percent Auto 0.3 % (0-2); Hematocrit 41.7 % (42.0-52.0); Hemoglobin 14.1 g/dl (14.0-18.0); Imm Gran Abs Auto 0.01 X10*3/uL (0.00-0.03); Imm Gran Pct Auto 0.1 % (0.0-0.4); Lymphocytes Absolute Auto 0.6 X10*3/uL (1.2-4.9); Lymphocytes Percent Auto 7.9 % (20-40); Mean Corpuscular HGB Conc 33.8 g/dl (31.0-36.0); Mean Corpuscular Hemoglobin 29.7 pg (27.0-33.0); Mean Platelet Volume 11.1 fL (9.4-12.4); Monocytes Absolute Auto 0.3 X10*3/uL (0.1-1.2); Monocytes Percent Auto 4.4 % (2-11); Neutrophils Absolute Auto 6.4 x10*3/uL (2.0-8.3); Neutrophils Percent Auto 87.3 % (45-73); Platelet Count 148 X10*3/uL (160-400); Red Blood Count 4.74 X10*6/uL (4.60-5.80); Red Cell Distribution Width 13.2 % (11.0-16.0); White Blood Count 7.3 X10*3/uL (4.8-10.8)
[2021-12-03] MEDS: Ketorolac Tromethamine 15 MG/ML VIAL IVPUSH (07:47)
[2021-12-03] MEDS: oxyCODONE HCl Immed Release 5 MG TABLET PO (07:48)
[2021-12-03 07:59] LABS: Alanine Aminotransferase 22 U/L (0-40); Albumin Level 4.1 g/dL (3.5-5.0); Alkaline Phosphatase 63 U/L (39-117); Anion Gap 15 (12-20); Aspartate Amino Transferase 21 U/L (5-37); Bilirubin Total 0.9 mg/dL (0.0-1.0); Blood Urea Nitrogen 17 mg/dL (9-16); Calcium 9.1 mg/dL (8.4-10.2); Carbon Dioxide 22 mmol/L (22-29); Chloride 108 mmol/L (96-108); Creatinine Clr Calc Pharmacy 95.1; Estimated Glomerular Filt Rate > 60; Glucose Random 126 mg/dL (60-115); Potassium 4.7 mmol/L (3.3-5.1); Sodium 140 mmol/L (135-145); Total Protein 6.3 g/dL (6.5-8.0)
[2021-12-03 08:12] VITALS: BP 140/78; PULSE 56; RESP 16; O2SAT 97
== END 2021-12-03 09:03 | disposition home or self-care (01) ==
PROVIDERS: Emergency Provider Emergency Medicine
DX: N20.0 Calculus of kidney (principal); Z79.899 Other long term (current) drug therapy
CPT/HCPCS: 36415; 74176; 80053; 81001; 85025; 87086; 93005; 96374; 99284; J1885

== ENCOUNTER 2022-05-29 07:46 | Outpatient (REF) | payer OTHER, SELFPAY ==
--- NOTE | ~2022-05-29 | US_ITS ---
EXAMINATION: US RETROPERITONEAL LIMITED (RENAL ONLY) CLINICAL INFORMATION: Calculus of kidney. COMPARISON: CT abdomen and pelvis 12/03/2021. TECHNIQUE: Real-time imaging of the kidneys. FINDINGS: RIGHT KIDNEY: 11.7 x 6.4 x 7.8 cm (SAG x AP x TRV). The kidney is normal in size, contour, and echogenicity. Renal cortical thickness is normal. No renal calculi or hydronephrosis. There are anechoic cysts upper/mid pole measuring 10.2 x 8.5 x 9.0 cm and mid pole measuring 0.9 x 0.8 x 0.9 cm. LEFT KIDNEY: 12.4 x 5.2 x 5.6 cm (SAG x AP x TRV). The kidney is normal in size, contour, and echogenicity. Renal cortical thickness is normal. No renal calculi or hydronephrosis. There is an anechoic cyst in the upper pole measuring 0.9 x 0.8 x 0.9 cm, mid pole measuring 1.4 x 1.5 x 1.4 cm and lower pole measuring 0.7 x 0.5 x 0.7 cm. There is mild renal fullness. US/US renal BI IMPRESSION: 1. Bilateral renal cysts. 2. There are no echogenic renal calculi or hydronephrosis.
== END 2022-05-29 07:47 | disposition home or self-care (01) ==
LOC: HO.US 07:46
PROVIDERS: PCP Internal Medicine; Visit Provider Urology
DX: N20.0 Calculus of kidney (principal)
CPT/HCPCS: 76775

== ENCOUNTER → 2022-06-25 14:46 | Outpatient (BNVA) | payer OTHER, SELFPAY | PROVIDERS: PCP Internal Medicine; Referring Provider Internal Medicine; Visit Provider Internal Medicine Cardiovascular Disease | DX: Z13.89 Encounter for screening for other disorder (principal) ==

== ENCOUNTER → 2022-06-26 11:32 | Outpatient (BNVA) | payer OTHER, SELFPAY | PROVIDERS: PCP Internal Medicine; Visit Provider Urology | DX: Z13.89 Encounter for screening for other disorder (principal) ==

== ENCOUNTER → 2022-09-29 15:23 | Outpatient (BNVA) | payer OTHER, SELFPAY | PROVIDERS: Visit Provider Internal Medicine Cardiovascular Disease | DX: I20.8 Other forms of angina pectoris (principal); I25.2 Old myocardial infarction; Z79.02 Long term (current) use of antithrombotics/antiplatelets; Z79.82 Long term (current) use of aspirin | CPT/HCPCS: 93005 ==

== ENCOUNTER 2023-02-02 13:28 | Outpatient (AMB) | payer OTHER, SELFPAY ==
--- NOTE | 2023-02-02 13:42 | A.OFFVIS_ITS ---
Intake Vital Signs 02/02/23 13:49 Height 6 ft 1 in Weight 225 lb 4.999 oz BMI 29.7 BP 118/68 Blood Pressure Location Rt brachial Position Sitting Respiration 16 Pulse 64 Pulse Source Palpation Intake Visit Reasons: 4 month f/u Intake Note: Valentino is a 62 year old male who presents today for a 4 month follow up. Patient states he is doing well. No questions or concerns at this time. Allergies latex Allergy (Verified 02/02/23 13:43) Rash Penicillins Allergy (Verified 02/02/23 13:43) Rash acetaminophen [From Vicodin] Adverse Reaction (Severe, Verified 02/02/23 13:43) pain hydrocodone [From Vicodin] Adverse Reaction (Severe, Verified 02/02/23 13:43) pain Medication List - Last Reconciled 02/02/23 by Charli Yap MD aspirin (Adult Low Dose Aspirin) 81 mg PO DAILY carvedilol 3.125 mg PO BID 90 days clopidogrel 75 mg PO DAILY isosorbide mononitrate ER 30 mg PO DAILY multivitamin 1 tab PO DAILY rosuvastatin 20 mg PO DAILY HPI HPI Comments History of Present Illness Details 62-year-old gentleman here for follow-up . He was seen in the hospital and presented with chest discomfort and mildly abnormal troponin levels. His clinical story was consistent with acute coronary syndrome. He was [facility] to [facility]. He was noted to have 75% mid RCA and 80-85% left circumflex stenosis. Lad also had moderate lesion which was checked with IFR which was 0.96 and not significant. We placed a drug-eluting stent in the left circumflex artery. We decided to treat the RCA medically. 06/25/22: He is here for follow-up. He h as been doing well. He is exercising regularly without any exertional symptoms. His LDL cholesterol is 61. Blood pressure control is good. Tolerating dual antiplatelet therapy quite well. We decide about long-term dual antiplatelet therapy and also to wait for symptoms before revascularization of the right coronary artery. 09/29/22: He is here for follow-up. EKG s howed sinus bradycardia 59 beats per minute, normal EKG QTC 411 milliseconds. Blood pressure is well controlled. He has been active and has no exertional symptoms. He has been walking and biking regularly without any exertional issues. No bleeding concerns. He is taking aspirin and Plavix. 02/02/2023: He returns for follow-up. H e has been well he continues to be active. No chest discomfort shortness of breath. No bleeding issues. [facility] Medical History High cholesterol Surgical History H/O surgical amputation of finger History of appendectomy History of cardiac cath Family History Mother Heart attack Father No problems noted. Brother Heart disease H/O heart artery stent Social History Alcohol intake: never Patient Tobacco Use Status: Never used Tobacco Physical Exam Vital Signs: Last Vital Signs Pulse 64 02/02/23 13:49 Resp 16 02/02/23 13:49 BP 118/68 02/02/23 13:49 BMI result Body Mass Index 29.7 GENERAL APPEARANCE: in no acute distress, pleasant. NECK: no carotid bruit, no jugular venous distention. SKIN: no suspicious lesions, warm and dry. HEART: no murmurs, regular rate and rhythm. LUNGS: clear to auscultation bilaterally. ABDOMEN: soft, nontender. EXTREMITIES: no edema. PERIPHERAL PULSES: equal. NEUROLOGIC: No gross deficits, AAO X 3 Assessment & Plan Assessment & Plan (1) Stable angina: Code(s): I20.8 - Other forms of angina pectoris (2) Stented coronary artery: Code(s): Z95.5 - Presence of coronary angioplasty implant and graft Plan Pleasant 62 year gentleman is here for follow-up. He had NSTEMI in September 2021 when he was taken for cardiac catheterization which showed severe circumflex disease as well as 75% RCA stenosis. He was treated for the circumflex artery at that time and we decided to treat RCA in case he develops symptoms. He has done significantly well since then. He has been physically active without any exertional issues. He is tolerating the dual antiplatelet therapy at this point. He had LAD stenosis which was approximately 60% and IFR negative. We had a d etailed discussion about dual antiplatelet therapy and that long-term dual antiplatelet therapy would be beneficial in his case because he has residual disease in the LAD and RCA. He has no bleeding issues. He has no financial issues to afford the medication. So far we have decided to continue aspirin and Plavix long-term. Obviously if any bleeding concerns happen or he requires surgery Plavix can be stopped. I have explained to him the Plavix is optional and if he feels he wants to stop it after September he can still stop it but aspirin should not be stopped. Thank you for allowing me to participate in the care of your patient. Please feel free to contact me if you have any questions. Coding Level of Care Code Est Pt Level 3 (82672) Diagnoses Stable angina I20.8 Stented coronary artery Z95.5
[2023-02-02 13:49] VITALS: BP 118/68; PULSE 64; RESP 16; BMI 29.7
== END 2023-02-02 14:03 | disposition home or self-care (01) ==
PROVIDERS: PCP Internal Medicine; Visit Provider Internal Medicine Cardiovascular Disease
DX: I20.8 Other forms of angina pectoris (principal); Z95.5 Presence of coronary angioplasty implant and graft
CPT/HCPCS: 99213

== ENCOUNTER → 2023-02-02 13:28 | Outpatient (BNVA) | payer OTHER, SELFPAY | PROVIDERS: PCP Internal Medicine; Visit Provider Internal Medicine Cardiovascular Disease ==

== ENCOUNTER 2023-06-18 14:56 | Outpatient (REF) | payer OTHER, SELFPAY ==
--- NOTE | ~2023-06-18 | US_ITS ---
EXAMINATION: US RETROPERITONEAL LIMITED (RENAL ONLY) CLINICAL INFORMATION: Calculus of kidney. COMPARISON: Renal ultrasound 05/29/2022. CT abdomen and pelvis 12/03/2021. TECHNIQUE: Real-time imaging of the kidneys. FINDINGS: RIGHT KIDNEY: 11.0 x 5.4 x 4.4 cm (SAG x AP x TRV). The kidney is normal in size, contour, and echogenicity. Renal cortical thickness is normal. No renal calculi or hydronephrosis. 9.8 x 8.7 x 8.6 cm cyst with internal debris versus avascular soft tissue. LEFT KIDNEY: 11.4 x 5.5 x 4.6 cm (SAG x AP x TRV). The kidney is normal in size, contour, and echogenicity. Renal cortical thickness is normal. No renal calculi or hydronephrosis. 1.5 cm mid pole cyst. US/US renal BI IMPRESSION: 9.8 cm right renal cyst with internal debris versus avascular soft tissue. Recommend further evaluation with CT or MR renal protocol.
== END 2023-06-18 14:57 | disposition home or self-care (01) ==
LOC: HO.US 14:56
PROVIDERS: PCP Internal Medicine; Visit Provider Urology
DX: N20.0 Calculus of kidney (principal)
CPT/HCPCS: 76775

== ENCOUNTER 2023-08-18 15:20 | Outpatient (AMB) | payer OTHER, SELFPAY ==
--- NOTE | 2023-08-18 15:23 | A.OFFVIS_ITS ---
Intake Visit Reasons: 1Y US(set) Intake Note: Patient is present for Ultrasound RESULTS follow up Urology Med: None Antibiotic Allergy: PENICILLIN Blood Thinner: Plavix, Aspirin Irrigation Equipment Mechanic Required: No Accompanied by: Self / Same As Patient Allergies latex Allergy (Verified 08/18/23 15:24) Rash Penicillins Allergy (Verified 08/18/23 15:24) Rash acetaminophen [From Vicodin] Adverse Reaction (Severe, Verified 08/18/23 15:24) pain hydrocodone [From Vicodin] Adverse Reaction (Severe, Verified 08/18/23 15:24) pain Medication List - Last Reconciled 09/21/23 by Isidro Cantu MD aspirin (Adult Low Dose Aspirin) 81 mg PO DAILY carvedilol 3.125 mg PO BID 90 days clopidogrel 75 mg PO DAILY isosorbide mononitrate ER 30 mg PO DAILY multivitamin 1 tab PO DAILY rosuvastatin 20 mg PO DAILY HPI Comments Details: Valentino is a pleasant male. He is a patient of . He seen for the following urologic conditions - nephrolithiasis Interval stone follow-up No evidence of stones 12 month follow-up Nephrolithiasis 12/19 evaluation at emergency room - Spontaneous stone passage No prior stone Had changed diet increased nut intake with decreased oral fluid intake Imaging - 12/19 There is a 2 mm calculus at the right - 06/19 renal ultrasound bilateral cysts, no stones - 06/20 renal ultrasound bilateral cysts up to 9 cm ureterovesicular junction with minimal right hydronephrosis. Therapeutic plan - encourage fluids - lemon therapy - surveillance imaging [facility] Medical History High cholesterol Surgical History H/O surgical amputation of finger History of appendectomy History of cardiac cath Family History Mother Heart attack Father No problems noted. Brother Heart disease H/O heart artery stent Social History Alcohol intake: never Patient Tobacco Use Status: Never used Tobacco Review of Systems Const Denies chills and Denies fever(s) Card Reports no additional complaints and Denies syncope Resp Denies cough GI Denies abdominal pain and Denies heartburn Reports as per HPI and Denies change in libido Neuro Denies syncope Psych Denies change in libido Endo Denies change in libido Physical Exam Const General: cooperative, healthy appearing, comfortable and no acute distress Orientation/consciousness: patient oriented x3 HEENT Face and sinus: Yes normal facial exam Mouth: moist mucous membranes Neck Neck: Yes normal visual inspection, Yes full ROM and Yes trachea midline Chest Chest palpation & inspection: normal inspection of the chest Resp Effort & Inspection: normal respiratory effort, able to speak in complete sentences and no respiratory distress GI Inspection: Yes normal to inspection Back/Spine/Pelvis Cervical Spine: normal cervical lordosis Thoracic/Lumbar Spine: thoracic and lumbar spine normal to inspection Skin General skin exam: no rashes or lesions noted Neuro General: patient oriented x3, gait normal, tone normal and moves all extremities Extrem General: Yes normal to inspection and Yes capillary refill normal Assessment & Plan Assessment & Plan (1) Nephrolithiasis: Code(s): N20.0 - Calculus of kidney Category: Medical Plan 1 year follow-up renal injury Orders: Orders US renal BI 6 Months N20.0 - Calculus of kidney Patient Instructions: Imaging studies, laboratory and physical exam results were discussed and reviewed in detail. No major barriers to patient understanding were identified. An opportunity to ask questions regarding the treatment plan was provided. All questions were answered. The patient expressed understanding and agreement with the above treatment plan. The patient is aware they should contact our office by phone for worsening of their current condition or the appearance of new urologic symptoms. Compliance is encouraged with any medications and followup testing that is ordered. It is a privilege to participate in the urologic care of your patient. If you have any questions or concerns regarding treatment for the above conditions, or other urologic issues, please do not hesitate to contact me. The office te rajendra contact is [phone]. This note is constructed using voice recognition software. While every effort has been made to ensure accuracy stone driller errors may have been included. Yours sincerely, Dr Isidro Cantu MD, [facility] - Urology Providers of Expert, Compassionate Care for the Genitourinary System Coding Level of Care Code Est Pt Level 3 (23597) Diagnoses Nephrolithiasis N20.0
== END 2023-08-18 16:20 | disposition home or self-care (01) ==
PROVIDERS: Visit Provider Urology
DX: N20.0 Calculus of kidney (principal)
CPT/HCPCS: 99213

== ENCOUNTER → 2023-08-18 15:20 | Outpatient (BNVA) | payer OTHER, SELFPAY | PROVIDERS: Visit Provider Urology ==

== ENCOUNTER 2024-02-02 14:39 | Outpatient (REF) | payer OTHER, SELFPAY | END 2024-02-02 14:40 | disposition home or self-care (01) | LOC: HO.US 14:39 | PROVIDERS: PCP Internal Medicine; Visit Provider Urology | DX: N20.0 Calculus of kidney (principal) | CPT/HCPCS: 76775 ==

== ENCOUNTER 2024-04-19 15:02 | Outpatient (AMB) | payer OTHER, SELFPAY ==
--- NOTE | 2024-04-19 15:02 | A.OFFVIS_ITS ---
Intake Visit Reasons: Followup/US(set) Intake Note: Patient is present for F/U US Urology Medication:NONE Antibiotic Allergy:PENICILLIN Blood Thinner:ASPIRIN Chemical Reclamation Equipment Operator Required: No Allergies latex Allergy (Verified 05/20/24 20:58) Rash Penicillins Allergy (Verified 05/20/24 20:58) Rash acetaminophen [From Vicodin] Adverse Reaction (Severe, Verified 05/20/24 20:58) pain hydrocodone [From Vicodin] Adverse Reaction (Severe, Verified 05/20/24 20:58) pain HPI Comments Details: Valentino is a pleasant male. He is a patient of . He seen for the following urologic conditions - nephrolithiasis Telemedicine Evaluation 15 min Consultation [employer] [place] Video Interval stone follow-up No evidence of stones on current imaging 12 month follow-up with MRI for complex renal cyst Nephrolithiasis 12/19 evaluation at emergency room - Spontaneous stone passage No prior stone Had changed diet increased nut intake with decreased oral fluid intake Imaging - 12/19 There is a 2 mm calculus at the right - 06/19 renal ultrasound bilateral cysts, no stones - 06/20 renal ultrasound bilateral cysts up to 9 cm - 02/20 renal ultrasound no stones ureterovesicular junction with minimal right hydronephrosis. Therapeutic plan - encourage fluids - lemon therapy - surveillance imaging [facility] Medical History High cholesterol Surgical History H/O surgical amputation of finger History of appendectomy History of cardiac cath Family History Mother Heart attack Father No problems noted. Brother Heart disease H/O heart artery stent Social History Alcohol intake: never Patient Tobacco Use Status: Never used Tobacco Advance Directives: No Advance Directives Information Provided: No Review of Systems Const All systems reviewed & are unremarkable except as noted in HPI and below Reports no additional complaints Resp Reports no additional complaints GI Reports no additional complaints Reports as per HPI Musc Reports no additional complaints Physical Exam Telemedicine evaluation Appropriate responses Regular breathing rate and rhythm HEENT Head: Yes normal to inspection Ears: hearing grossly normal bilaterally Eyes General: appearance normal, both eyes and all related structures Neck Neck: Yes normal visual inspection Chest Chest palpation & inspection: normal inspection of the chest Resp Effort & Inspection: normal respiratory effort and able to speak in complete sentences Telehealth Telehealth Telehealth Platform: [employer] Location of provider rendering services: practice address Location of patient: address on file Patient Identification confirmed using: Name, : Yes Telehealth method: video Patient verbally consented to treatment: Yes Patient verbally consented to billing insurance company: Yes Patient informed of any privacy concerns related to visit: Yes Assessment & Plan Assessment & Plan (1) Complex renal cyst: Code(s): N28.1 - Cyst of kidney, acquired Category: Medical Plan Twelve month follow-up office MRI renal Orders: Orders MR abdomen wo/w con 1 Year N28.1 - Cyst of kidney, acquired Patient Instructions: This note is constructed using voice recognition software. While every effort has been made to ensure accuracy orchestra leader errors may have been included. Imaging studies, laboratory and physical exam results were discussed and reviewed in detail. No major barriers to patient understanding were identified. An opportunity to ask questions regarding the treatment plan was provided. All questions were answered. The patient expressed understanding and agreement with the above treatment plan. The patient is aware they should contact our office by phone for worsening of their current condition or the appearance of new urologic symptoms. Compliance is encouraged with any medications and followup testing that is ordered. It is a privilege to participate in the urologic care of your patient. If you have any questions or concerns regarding treatment for the above conditions, or other urologic issues, please do not hesitate to contact me. The office telephone contact is [phone]. Sincerely, Dr Isidro Cantu MD, [facility] - Urology Compassionate Specialist Care for the Genitourinary System Coding Level of Care Code Tele Est Pt Level 3 (36775) Diagnoses Complex renal cyst N28.1
== END 2024-04-20 08:45 | disposition home or self-care (01) ==
LOC: HO.HUSH 15:02
PROVIDERS: PCP Internal Medicine; Visit Provider Urology
DX: N28.1 Cyst of kidney, acquired (principal)
CPT/HCPCS: 99213

== ENCOUNTER 2024-04-25 15:45 | Outpatient (AMB) | payer OTHER, SELFPAY ==
[2024-04-25 15:49] VITALS: BP 130/66; PULSE 64; BMI 33.4
--- NOTE | 2024-04-25 15:49 | A.OFFVIS_ITS ---
Vital Signs 04/25/24 15:49 Height 6 ft 1 in Weight 253 lb 1.451 oz BMI 33.4 BP 130/66 Blood Pressure Location Lt brachial Position Sitting Pulse 64 Pulse Source Monitor Intake Visit Reasons: 1 yr f/up Intake Note: 1 yr f/up District Gauger Required: No Accompanied by: Self / Same As Patient Allergies latex Allergy (Verified 04/19/24 15:03) Rash Penicillins Allergy (Verified 04/19/24 15:03) Rash acetaminophen [From Vicodin] Adverse Reaction (Severe, Verified 04/19/24 15:03) pain hydrocodone [From Vicodin] Adverse Reaction (Severe, Verified 04/19/24 15:03) pain Medication List - Last Reconciled 04/27/24 by Charli Yap MD aspirin (Adult Low Dose Aspirin) 81 mg PO DAILY carvedilol 3.125 mg PO BID clopidogrel 75 mg PO DAILY isosorbide mononitrate ER 30 mg PO DAILY multivitamin 1 tab PO DAILY rosuvastatin 20 mg PO DAILY HPI Comments Details: 64-year-old gentleman here for follow-up. He was seen in the hospital and presented with chest discomfort and mildly abnormal troponin levels. His clinical story was consistent with acute coronary syndrome. He was transferred to [facility]. He was noted to have 75% mid RCA and 80-85% left circumflex stenosis. Lad also had moderate lesion which was checked with IFR which was 0.96 and not significant. We placed a drug-eluting stent in the left circumflex artery. We decided to treat the RCA medically. 06/25/22: He is here for follow-up. He has been doing well. He is exercising regularly without any exertional symptoms. His LDL cholesterol is 61. Blood pressure control is good. Tolerating dual antiplatelet therapy quite well. We decide about long-term dual antiplatelet therapy and also to wait for symptoms before revascularization of the right coronary artery. 09/29/22: He is here for follow-up. EKG showed sinus bradycardia 59 beats per minute, normal EKG QTC 411 milliseconds. Blood pressure is well controlled. He has been active and has no exertional symptoms. He has been walking and biking regularly without any exertional issues. No bleeding concerns. He is taking aspirin and Plavix. 02/02/2023: He returns for follow-up. He has been well he continues to be active. No chest discomfort shortness of breath. No bleeding issues. 04/25/2024: He is here for follow-up. No chest pain or shortness of breath. His main complaint is bruising on his arms. He is taking aspirin and Plavix. [facility] Medical History High cholesterol Surgical History H/O surgical amputation of finger History of appendectomy History of cardiac cath Family History Mother Heart attack Father No problems noted. Brother Heart disease H/O heart artery stent Social History Alcohol intake: never Patient Tobacco Use Status: Never used Tobacco Review of Systems Const Denies chills, Denies fatigue, Denies fever(s), Denies frequent falls, Denies weakness, Denies weight gain and Denies weight loss ENT Denies dizziness Card Denies chest pain, Denies leg edema, Denies lightheadedness, Denies palpitations, Denies dyspnea and Denies dyspnea on exertion Resp Denies cough, Denies dyspnea and Denies dyspnea on exertion GI Denies hematochezia Musc Denies abnormal gait, Denies muscle weakness, Denies numbness, Denies radiating pain into limb and Denies tingling Neuro Denies abnormal gait, Denies dizziness, Denies frequent falls, Denies numbness, Denies tingling and Denies weakness Endo Denies fatigue and Denies palpitations Physical Exam Vital Signs: Last Vital Signs Pulse 64 04/25/24 15:49 BP 130/66 04/25/24 15:49 BMI result Body Mass Index 33.4 GENERAL APPEARANCE: in no acute distress, pleasant. NECK: no carotid bruit, no jugular venous distention. SKIN: no suspicious lesions, warm and dry. HEART: no murmurs, regular rate and rhythm. LUNGS: clear to auscultation bilaterally. ABDOMEN: soft, nontender. EXTREMITIES: no edema. PERIPHERAL PULSES: equal. NEUROLOGIC: No gross deficits, AAO X 3 Office Procedures EKG Details: Sinus rhythm 64 beats per minute, normal ECG, QTC 410 milliseconds. [id number], Complete Assessment & Plan Assessment & Plan (1) Stable angina: Code(s): I20.8 - Other forms of angina pectoris Category: Medical Plan Pleasant 64 year gentleman who is here for follow-up. He has stable angina. He previously had NSTEMI and underwent circumflex PCI. LAD was 60% stenosed and IFR was negative. RCA was 75% stenosed and was medically managed. He continues to do well with medical management at this point. He is physically active and has no exertional symptoms. He has bruising on his arms and we discussed and we have decided to continue baby aspirin and stop the Plavix from here onwards. He will see us back in 1 year. Thank you for allowing me to participate in the care of your patient. Please feel free to contact me if you have any questions. Medications: Discontinued clopidogrel Discontinued Reason: Doctor's Order 75 mg PO DAILY 90 tabs 3RF I20.8 - Other forms of angina pectoris Coding Level of Care Code Est Pt Level 4 (47988) Diagnoses Stable angina I20.8 CPT Codes EKG - CPT: 57438-[id number], Complete ([id number])
== END 2024-04-25 16:25 | disposition home or self-care (01) ==
PROVIDERS: PCP Internal Medicine; Visit Provider Internal Medicine Cardiovascular Disease
DX: I20.89 Other forms of angina pectoris (principal)
CPT/HCPCS: 99214

== ENCOUNTER → 2024-04-25 15:45 | Outpatient (BNVA) | payer OTHER, SELFPAY | PROVIDERS: PCP Internal Medicine; Visit Provider Internal Medicine Cardiovascular Disease | DX: I20.89 Other forms of angina pectoris (principal); I25.2 Old myocardial infarction; Z79.82 Long term (current) use of aspirin | CPT/HCPCS: 93005 ==

== ENCOUNTER 2024-05-20 20:48 | Emergency (ER) | payer OTHER, SELFPAY ==
[2024-05-20 20:53] VITALS: BP 154/86; PULSE 61; RESP 18; TEMP 36.5; O2SAT 99; BMI 32.3
--- NOTE | 2024-05-20 22:07 | ED.EYEPROB ---
HPI - Eye Problem General Chief complaint: Eye Problems Stated complaint: Flashes of light possible deetached retina Time Seen by Provider: 05/20/24 21:36 Source: patient Mode of arrival: ambulatory Limitations: no limitations History of Present Illness ED Provider: HPI Narrative: Patient in stable health with history of hypertension not on any anticoagulant suddenly at 18:00 noticed photopsia situation feeling in lateral feel of left eye lasting only for 3 -4 minutes no loss of vision episode happened few times none at this time no history of migraine no history of head injury not on anticoagulation Related Data Home Medications ?Medication ?Instructions ?Recorded ?Confirmed aspirin 81 mg tablet,delayed 81 mg PO DAILY 11/18/21 04/27/24 release (Adult Low Dose Aspirin) multivitamin 1 tab PO DAILY 11/18/21 04/27/24 Previous Rx's ?Medication ?Instructions ?Recorded isosorbide mononitrate 30 mg 30 mg PO DAILY #90 tabs 04/29/22 tablet,extended release 24 hr rosuvastatin 20 mg tablet 20 mg PO DAILY #90 tabs 01/06/24 carvedilol 3.125 mg tablet 3.125 mg PO BID #180 tabs 04/04/24 Allergies Allergy/AdvReac Type Severity Reaction Status Date / Time latex Allergy Rash Verified 05/20/24 20:58 Penicillins Allergy Rash Verified 05/20/24 20:58 acetaminophen [From Vicodin] AdvReac Severe pain Verified 05/20/24 20:58 hydrocodone [From Vicodin] AdvReac Severe pain Verified 05/20/24 20:58 Review of Systems Review of Systems: Yes all other systems are reviewed and are negative PMFSH Past Medical History Medical History High cholesterol Surgical History H/O surgical amputation of finger History of appendectomy History of cardiac cath Family History Family History Mother Heart attack Father No problems noted. Brother Heart disease H/O heart artery stent Social History Social History Alcohol intake: never Patient Tobacco Use Status: Never used Tobacco Advance Directives: No Advance Directives Information Provided: No Physical Exam Vital Signs: Vital Signs: Last Vital Signs Temp 97.7 F 05/20/24 23:02 Pulse 61 05/20/24 23:02 Resp 18 05/20/24 23:02 BP 154/86 H 05/20/24 23:02 Pulse Ox 99 05/20/24 23:02 O2 Del Method Room Air 05/20/24 23:02 BMI result Body Mass Index 32.3 Appearance: Alert. Oriented X3. No acute distress. Eyes: PERRLA, No Nystagmus fundus exam is benign ultrasound of the orbit no retinal detachment, visual kelsey normal ENT: Pharynx normal. Oral Mucosa moist temporal artery nontender Neck: Normal inspection. Neck supple. CVS: Normal heart rate and rhythm. Pulses normal. Respiratory: No respiratory distress. Equal air entry bilateral, no wheezing/rales/rhonchi Abdomen: Soft and nontender. Bowel sounds are present, no mass palpable, no CVA tenderness Skin: Skin warm and dry. Normal skin color. Normal skin turgor. Extremities: No lower extremity edema. No calf tenderness Neuro: Oriented X 3. No motor deficit. No sensory deficit.No cerebellar signs , cranial nerves II-XII intact Discharge Plan Discharge Clinical Impression: Vitreous degeneration and detachment Patient Disposition: Home, Self-Care Instructions: Visual Floaters (ED) Additional Instructions: Likely you have possible vitreous detachment/ vitreous fluid changes Drink plenty of fluids Avoid exertion report to ER/benefits counselor if scintillations /floaters last more than 20 minutes Prescriptions: No Action isosorbide mononitrate 30 mg tablet extended release 24 hr 30 mg PO DAILY Qty: 90 2RF rosuvastatin 20 mg tablet 20 mg PO DAILY Qty: 90 3RF carvedilol 3.125 mg tablet 3.125 mg PO BID Qty: 180 2RF aspirin [Adult Low Dose Aspirin] 81 mg tablet,delayed release (DR/EC) 81 mg PO DAILY multivitamin Tablet 1 tab PO DAILY Interventions: ED Discharge Assessment Last Done: 05/20/24 23:02 Discharge Date/Time: 05/20/24 23:03 Print Language: Bhutanese
--- NOTE | 2024-05-20 22:17 | PC.NURSE ---
speaking with social media marketing specialist regarding patient to determine next steps in care plan. Awaiting consult.
[2024-05-20 23:02] VITALS: BP 154/86; PULSE 61; RESP 18; TEMP 36.5; O2SAT 99
== END 2024-05-20 23:03 | disposition home or self-care (01) ==
PROVIDERS: Emergency Provider Internal Medicine; PCP Internal Medicine
DX: H57.12 Ocular pain, left eye (principal)
CPT/HCPCS: 99282

== ENCOUNTER 2024-06-05 12:53 | Emergency (ER) | payer OTHER, SELFPAY ==
--- NOTE | ~2024-06-05 | XR_ITS ---
CLINICAL HISTORY: Chest pain 1 view chest x-ray Comparison: CR/SR - XR CHEST 1V - 10/01/21 08:00 EDT Findings: No consolidation, pleural effusion or pneumothorax. Normal size heart. No acute fracture. IMPRESSION: 1. No acute findings. This document has been electronically signed by: Rhonda Ayala DO on 06/05/2024 15:04:29
--- NOTE | 2024-06-05 12:56 | ECG_ITS ---
Test Reason : chest pain Blood Pressure : */* mmHG Vent. Rate : 73 BPM Atrial Rate : 73 BPM P-R Int : 124 ms QRS Dur : 86 ms QT Int : 378 ms P-R-T Axes : 43 26 31 degrees QTcB Int : 416 ms Normal sinus rhythm Normal ECG When compared with ECG of 03-Dec-2021 07:01, No significant change was found Referred By: Naresh Gomez Electronically Signed By: JENELLE SANTOS
[2024-06-05 13:10] VITALS: BP 132/77; PULSE 78; RESP 20; TEMP 36.6; O2SAT 96; BMI 33.9
--- NOTE | 2024-06-05 13:18 | ED_ITS ---
HPI - General Adult General Chief complaint: Chest Pain Stated complaint: Chest Tightness Time Seen by Provider: 06/05/24 15:53 Source: patient Limitations: no limitations History of Present Illness HPI narrative: Patient is a 64-year-old male who presents emergency department for evaluation. He reports 3 days ago he experienced a discomfort to his chest it was difficult to describe exactly how it felt, was felt to the mid anterior chest and some mild associated shortness of breath, began feeling hot like he had a fever, pressure in his stomach but denied nausea. Symptoms resolved after about 20 minutes on their own. Yesterday he had no symptoms. This morning he took his dog for a walk 2 miles and felt a little bit winded which was atypical for him but he denied any chest pain during this time. He reports today after eating lunch he again noticed a tightness/pressure to the substernal region of his chest, no radiation of pain, nausea, vomiting, diaphoresis, dizziness. Pain lasted approximately 45 minutes before self-resolving. Denies associated diaphoresis, nausea, vomiting, radiation of pain. He admits to a heart history of cardiac stenting approximately 3 years ago, he states ?to other vessels are 60-75% blocked?. He follows with Cardiology Dr. Yap. Reports that he has experienced acid reflux in the past, did not feel this pain to be consistent with that. Currently he is asymptomatic. Related Data Home Medications ?Medication ?Instructions ?Recorded ?Confirmed aspirin 81 mg tablet,delayed 81 mg PO DAILY 11/18/21 04/27/24 release (Adult Low Dose Aspirin) multivitamin 1 tab PO DAILY 11/18/21 04/27/24 Previous Rx's ?Medication ?Instructions ?Recorded isosorbide mononitrate 30 mg 30 mg PO DAILY #90 tabs 04/29/22 tablet,extended release 24 hr rosuvastatin 20 mg tablet 20 mg PO DAILY #90 tabs 01/06/24 carvedilol 3.125 mg tablet 3.125 mg PO BID #180 tabs 04/04/24 Allergies Allergy/AdvReac Type Severity Reaction Status Date / Time latex Allergy Rash Verified 06/05/24 13:15 Penicillins Allergy Rash Verified 06/05/24 13:15 acetaminophen [From Vicodin] AdvReac Severe pain Verified 06/05/24 13:15 hydrocodone [From Vicodin] AdvReac Severe pain Verified 06/05/24 13:15 Review of Systems 2 Review of Systems: Yes all other systems are reviewed and are negative [facility] Past Medical History Attestation statement: The following information was validated with the patient. Source: old records reviewed Medical History High cholesterol Surgical History H/O surgical amputation of finger History of appendectomy History of cardiac cath Family History Family History Mother Heart attack Father No problems noted. Brother Heart disease H/O heart artery stent Social History Social History Alcohol intake: never Patient Tobacco Use Status: Never used Tobacco Physical Exam ED Vital Signs: Vital Signs - 24 hr 06/05/24 13:10 06/05/24 16:03 Temperature 97.8 F Pulse Rate 78 53 Respiratory Rate 20 14 Blood Pressure 132/77 153/80 H Pulse Oximetry 96 99 Oxygen Delivery Method Room Air Room Air BMI result Body Mass Index 33.9 Appearance: Alert.?Oriented to person, place and time. No acute distress.?Normal affect. Eyes: Pupils equal, round and reactive to light.? ENT: Pharynx normal.?? Neck: Normal inspection.? Neck supple.??No JVD. CVS: Heart sounds normal. Normal heart rate and rhythm.? Pulses normal.?? Respiratory: No respiratory distress.? Lung sounds clear to auscultation bilaterally?? Abdomen: Soft and non-tender. Normoactive bowel sounds. No pulsatile mass.?? Skin: Skin warm and dry.? Normal skin color.? ?? Extremities: No lower extremity edema.? No calf ttp? Neuro: Moves all extremities spontaneously. Sensation intact bilaterally. CN II- XII intact. No focal neuro deficits. Ambulates with normal steady gait. Course Course Course Narrative: RME: 64-year-old male presents to ED for chest tightness his father with shortness of breath. Patient denies any URI symptoms or recent travel. 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 EKG labs ordered. Medical Decision Making Medical Decision Making MDM Narrative: Patient is a 64-year-old male with past medical history of hypertension, hypercholesterolemia, stable angina, NSTEMI previous stenting of the left circumflex artery, 75% stenosis of the mid RCA and 80-85% occlusion of the left circumflex stenosis in a moderate lesion of the LAD. He has previously been able to exercise without exertional symptoms. States he was seen by Cardiology in March of 2024, decision was made to discontinue his Plavix at that time. Heart score is 3. EKG revealing normal sinus rhythm with a ventricular rate of 73, QTC 416, no ST elevation, no ST depression, T-wave inversion in lead III as seen on priors. Given onset of pain this afternoon will obtain delta troponin to evaluate further for possible ACS. No evidence of volume overload or shock on exam. EKG without signs of acute ischemia. Low suspicion for acute PE (Wells low risk), pneumothorax, thoracic aortic dissection, cardiac effusion / tamponade. No recent trauma or injury, no tracheal deviation, unlikely tension pneumothorax. No recent URI symptoms to suggest viral illness, pneumonia, costochondritis. No abdominal tenderness upon palpation, negative Stroud sign, unlikely acute cholecystitis, choledocholithiasis, no fever or jaundice to suggest acute cholangitis, may possibly be biliary colic secondary to cholelithiasis. Denies associated acid reflux, no tenderness upon palpation over the epigastrium or left upper quadrant to suggest gastritis, no recent hematemesis history less likely to suggest PUD. Denies excessive alcohol consumption, history of diabetes, lower suspicion acute pancreatitis. Delta troponin within normal range. Remains chest pain-free. Advised close outpatient follow-up with Cardiology, reviewed strict return precautions. All questions answered Differential Diagnosis Differential Diagnoses: The differential diagnosis associated with the presentation includes (See narrative above) Admission/Observation Consideration of admission/observation: Escalation of care including admission/observation considered (See narrative above and course narrative for further detail) Lab Data [facility] Lab Attestation statement: I reviewed the patient's lab results. 06/05/24 13:47 06/05/24 13:47 Labs: Lab Results 06/05/24 06/05/24 Range/Units 13:47 17:15 WBC 6.1 (4.8-10.8) X10*3/uL RBC 4.58 L (4.60-5.80) X10*6/uL Hgb 14.1 (14.0-18.0) g/dl Hct 39.8 L (42.0-52.0) % MCV 86.9 (80.0-98.0) fL MCH 30.8 (27.0-33.0) pg MCHC 35.4 (31.0-36.0) g/dl RDW 12.3 (11.0-16.0) % Plt Count 127 L (160-400) X10*3/uL MPV 10.6 (9.4-12.4) fL Immature Gran % (Auto) 0.5 H (0.0-0.4) % Neut % (Auto) 68.4 (45-73) % Lymph % (Auto) 21.0 (20-40) % [place] % (Auto) 7.6 (2-11) % Eos % (Auto) 1.8 (0-4) % Baso % (Auto) 0.7 (0-2) % Lymph # (Auto) 1.3 (1.2-4.9) X10*3/uL [place] # (Auto) 0.5 (0.1-1.2) X10*3/uL Eos # (Auto) 0.1 (0.0-0.4) X10*3/uL Baso # (Auto) 0.0 (0.0-0.2) X10*3/uL Abs Immat Gran (auto) 0.03 (0.00-0.03) X10*3/uL Absolute Neuts (auto) 4.2 (2.0-8.3) x10*3/uL Absolute Nucleated RBC 0.000 (0.0-0.012) X10*3/uL Nucleated RBC % (auto) 0.0 (0.0-0.2) /100WBC PT 11.3 (10.9-12.4) SEC INR 1.0 (0.9-1.1) APTT 32.4 (26.0-36.8) SEC Sodium 142 (135-145) mmol/L Potassium 4.1 (3.3-5.1) mmol/L Chloride 111 H (96-108) mmol/L Carbon Dioxide 24 (22-29) mmol/L Anion Gap 11 L (12-20) BUN 20 H (9-16) mg/dL Creatinine 0.98 (0.5-1.4) mg/dL Estim Creat Clear Calc 103.1 Estimated GFR > 60 Random Glucose 109 (60-115) mg/dL Calcium 9.0 (8.4-10.2) mg/dL Total Bilirubin 0.5 (0.0-1.0) mg/dL AST 22 (5-37) U/L ALT 22 (0-40) U/L Alkaline Phosphatase 47 (39-117) U/L Troponin I High Sens 7.5 14.9 D (<3.5-35.0) ng/L B-Natriuretic Peptide 15 (<100) pg/mL Total Protein 6.5 (6.5-8.0) g/dL Albumin 3.8 (3.5-5.0) g/dL Influenza Type A (PCR) NEGATIVE (Negative) Influenza Type B (PCR) NEGATIVE (Negative) RSV RNA Qual (PCR) NEGATIVE (Negative) SARS-CoV-2 RNA (RT-PCR) NEGATIVE (Negative) Independent Interpretation I performed an independent interpretation of an: EKG (See narrative above) and Plain X-Ray (No consolidation infiltrate to suggest pneumonia) Radiology Impression Discussion of test interpretation with radiology: I have reviewed the radiologist's reading. Radiologist Impression: 1 view chest x-ray Comparison: CR/SR - XR CHEST 1V - 10/01/21 08:00 EDT Findings: No consolidation, pleural effusion or pneumothorax. Normal size heart. No acute fracture. IMPRESSION: 1. No acute findings. Independent Historian Clinical information obtained from an independent historian. History obtained from or confirmed by: Spouse External Record Review External record reviewed: Outpatient record Chronic Conditions Patient?s care impacted by: Other (See narrative above) Discharge Plan Discharge Clinical Impression: Chest pain Patient Disposition: Home, Self-Care Instructions: Chest Pain (DC) Additional Instructions: Your blood test today including troponin x2 (a cardiac enzyme) were normal which is reassuring. Your EKG did not show acute changes. You have been without pain while in the emergency department. Your blood work is otherwise unremarkable. Viral testing is negative. Chest x- ray is without abnormality. I do suggest that you follow-up closely with your PCP but as well as her waste water treatment plant operator. I suggest contacting your office this week to arrange for follow-up to discuss your recent symptoms. Return at any time with any new or worsening symptoms or concerns. Prescriptions: No Action isosorbide mononitrate 30 mg tablet extended release 24 hr 30 mg PO DAILY Qty: 90 2RF rosuvastatin 20 mg tablet 20 mg PO DAILY Qty: 90 3RF carvedilol 3.125 mg tablet 3.125 mg PO BID Qty: 180 2RF aspirin [Adult Low Dose Aspirin] 81 mg tablet,delayed release (DR/EC) 81 mg PO DAILY multivitamin Tablet 1 tab PO DAILY Referrals: Charli Yap MD [Physician] - Raz Stanley MD [Primary Care Provider] - Print Language: Lithuanian
[2024-06-05 13:52] LABS: MANUAL DIFF FLAG NO
[2024-06-05 13:57] LABS: Mean Corpuscular Volume 86.9 fL (80.0-98.0); Mean Platelet Volume 10.6 fL (9.4-12.4); PLT CLUMP 1; Red Cell Distribution Width 12.3 % (11.0-16.0); SCAN SMEAR FLAG 1
[2024-06-05 13:59] LABS: Basophils Percent Auto 0.7 % (0-2); Eosinophils Absolute Auto 0.1 X10*3/uL (0.0-0.4); Eosinophils Percent Auto 1.8 % (0-4); Hematocrit 39.8 % (42.0-52.0); Hemoglobin 14.1 g/dl (14.0-18.0); Imm Gran Abs Auto 0.03 X10*3/uL (0.00-0.03); Imm Gran Pct Auto 0.5 % (0.0-0.4); Lymphocytes Absolute Auto 1.3 X10*3/uL (1.2-4.9); Mean Corpuscular HGB Conc 35.4 g/dl (31.0-36.0); Mean Corpuscular Hemoglobin 30.8 pg (27.0-33.0); Monocytes Absolute Auto 0.5 X10*3/uL (0.1-1.2); Monocytes Percent Auto 7.6 % (2-11); Neutrophils Absolute Auto 4.2 x10*3/uL (2.0-8.3); Neutrophils Percent Auto 68.4 % (45-73); Platelet Count 127 X10*3/uL (160-400); Red Blood Count 4.58 X10*6/uL (4.60-5.80); White Blood Count 6.1 X10*3/uL (4.8-10.8)
[2024-06-05 14:01] LABS: Prothrombin Time 11.3 SEC (10.9-12.4)
[2024-06-05 14:04] LABS: Partial Thromboplastin Time 32.4 SEC (26.0-36.8)
[2024-06-05 14:07] LABS: Alanine Aminotransferase 22 U/L (0-40); Albumin Level 3.8 g/dL (3.5-5.0); Alkaline Phosphatase 47 U/L (39-117); Anion Gap 11 (12-20); Aspartate Amino Transferase 22 U/L (5-37); Bilirubin Total 0.5 mg/dL (0.0-1.0); Blood Urea Nitrogen 20 mg/dL (9-16); Carbon Dioxide 24 mmol/L (22-29); Chloride 111 mmol/L (96-108); Creatinine Clr Calc Pharmacy 103.1; Estimated Glomerular Filt Rate > 60; Glucose Random 109 mg/dL (60-115); Potassium 4.1 mmol/L (3.3-5.1); Sodium 142 mmol/L (135-145); Total Protein 6.5 g/dL (6.5-8.0)
[2024-06-05 14:13] LABS: B Type Natriuretic Peptide 15 pg/mL (<100)
[2024-06-05 14:14] LABS: Troponin-I High Sensitivity 7.5 ng/L (<3.5-35.0)
[2024-06-05 14:29] LABS: Influenza A PCR NEGATIVE (Negative); Influenza B PCR NEGATIVE (Negative); Resp Syncy Virus RNA Qual PCR NEGATIVE (Negative); SARS COV2 PCR INHOUSE NEGATIVE (Negative)
[2024-06-05 16:03] VITALS: BP 153/80; PULSE 53; RESP 14; O2SAT 99
[2024-06-05 17:41] LABS: Troponin-I High Sensitivity 14.9 ng/L (<3.5-35.0)
[2024-06-05 18:05] VITALS: BP 153/80; PULSE 63; RESP 20; TEMP 36.7; O2SAT 99
== END 2024-06-05 18:22 | disposition home or self-care (01) ==
PROVIDERS: Nurse Practitioner Family; Physician Assistant; Emergency Provider Emergency Medicine Emergency Medical Services; PCP Internal Medicine
DX: R07.89 Other chest pain (principal); R06.02 Shortness of breath; I10 Essential (primary) hypertension; Z79.899 Other long term (current) drug therapy; Z03.818 Encounter for observation for suspected exposure to other biological agents ruled out
CPT/HCPCS: 0241U; 36415; 71045; 80053; 83880; 84484; 85025; 85610; 85730; 93005; 99283; 99285

== ENCOUNTER → 2024-06-05 12:56 | Outpatient (BNV) | payer OTHER, SELFPAY | PROVIDERS: Emergency Provider Emergency Medicine Emergency Medical Services; PCP Internal Medicine; Visit Provider Internal Medicine | DX: R07.9 Chest pain, unspecified (principal) | CPT/HCPCS: 93010 ==

== ENCOUNTER → 2024-06-05 13:15 | Outpatient (BNV) | payer OTHER, SELFPAY | PROVIDERS: PCP Internal Medicine; Visit Provider Radiology Diagnostic Radiology | DX: R07.9 Chest pain, unspecified (principal) | CPT/HCPCS: 71045 ==

== ENCOUNTER → 2024-06-10 07:46 | Outpatient (REF) | payer OTHER, SELFPAY ==
--- NOTE | 2024-06-10 07:50 | CA_ITS ---
Acquisition Time: 2024-06-10 08:08:45 Total Exercise Time: 00:09:22 Test Indications: CP, ABN TROPONIN Medications: SEE H&P Protocol: ELMA Max HR: 139 BPM 88% of Pred: 157 BPM Max BP: 204/88 mmHG Max Work Load: 10.6 METS Exercise Stress Test with exercise 9 mins 22 secs of Elma Protocol, achieving 88% MPHR, with reports of SOB, no chest discomfort, with isolated PVC and one ventricular couplet, with normotensive response to exercise, baseline HTN (held am BB). Without EKG changes meeting criteria for ischemia. In recovery, breathing returned to baseline. Test reviewed with Dr. Taylor. Referred By: Charli Yap Electronically Signed By: Min Billingsley
== END ==
LOC: HO.CARD 07:46
PROVIDERS: Visit Provider Internal Medicine Cardiovascular Disease
DX: I20.81 Angina pectoris with coronary microvascular dysfunction (principal)
CPT/HCPCS: 93017

== ENCOUNTER → 2024-06-10 07:50 | Outpatient (BNV) | payer OTHER, SELFPAY | DX: R06.02 Shortness of breath (principal); I49.3 Ventricular premature depolarization; I10 Essential (primary) hypertension | CPT/HCPCS: 93016; 93018 ==

== ENCOUNTER 2025-03-18 07:48 | Outpatient (REF) | payer OTHER, SELFPAY ==
--- OUTSIDE RECORDS SUMMARY | 2025-03-18 07:51 | XMS_ITS | Clinical Summary ---
Author Organization [facility] Address [address] [place] [address] Care Team Providers Care Motion Picture Photographer Name Role Phone Raz Stanley MD Primary Care Provider + Social History Tobacco Use Types Packs/Day Years Used Date Smoking Tobacco: Never Assessed Sex and Gender Information Value Date Recorded Sex Assigned at Male 09/01/2024 12:50 PM EDT Legal Sex Male 12:48 PM EDT Gender Identity Male 09/01/2024 12:50 PM EDT Sexual Orientation Heterosexual (straight) 09/01 12:50 PM EDT Plan of Treatment Health Maintenance Due Date Last Done Comments Hepatitis C Virus Screening 1961 HIV Screening 1974 DTaP/Tdap/Td Vaccines (1 - Tdap) 02/17/1980 Colonoscopy 2006 Pneumococcal Vaccines 50+ (1 of 1 - PCV) 2011 Zoster (Shingles) Vaccine (1 of 2) 2011 Influenza Vaccine 10/28/2024 COVID-19 Vaccine (1 - 2024-2 6 season) 2024 RSV Vaccine 50 years and old er and Patients (1 - 1-dose 75+ series) 02/17/2036 Hepatitis B Vaccines Aged Out No long er eligible based on patient's age to complete this [place] [id number] [facility] Care Teams Motion Picture Photographer Relationship Specialty Start Date End Date Raz Stanley MD [address] [facility] [address] [place] [address] PCP - General 09/07/24
--- OUTSIDE RECORDS SUMMARY | 2025-03-18 07:51 | XMS_ITS ---
Author Name [facility] Organization Unknown Problems Problem Status Onset Date Problem Type Date of Resolution Source Tinnitus of both ears active EncounterDiagnosis Act HHCCT Sensorineural hearing loss, bilateral active EncounterDiagnosisAct HHC CT Encounters Encounter Type Encounter Reason Primary Diagnosis Location Date Ambulatory [facility] 09/07/2024 Care Team Organization Name Specialty Phone Email Start Date End Da te [email or web address] 09/07/2024 025 [email or web address] 09/07/2024 [email or web address] 09/01/2024
--- OUTSIDE RECORDS SUMMARY | 2025-03-18 07:51 | XMS_ITS | Clinical Summary ---
Author Organization [facility] Address [address] [place] [address] Care Team Providers Care Hosiery Operator Name Role Phone Unavailable Primary Care Provider Unavailabl e Social History Tobacco Use Types Packs/Day Years Used Date Smoking Tobacco: Never Assessed Sex and Gender Information Value Date Recorded Sex Assigned at Not on file Legal Sex Male 11:59 AM EST Gender Identity Not on file Sexual Orientation Not on file Plan of Treatment Health Maintenance Due Date Last Done Comments Colorectal Cancer Screening: Colonoscopy 1961 DTaP,Tdap,and Td Vaccines (1 - Tdap) 02/17/1980 Pneumococcal Vaccine: 50+ Ye ars (1 of 1 - PCV) 2011 Zoster Vaccines (1 of 2) 2011 Depression Screening 03/30/2024 COVID-19 Vaccine ( - 2024-2 6 season) 2024 Influenza Vaccine (#1) 2024 Cholesterol Screening (Lipid Panel) 12/14/2024 HIV Screening 12/14/2024 Hepatitis C Screening 12/14/2024 Social Influencers of Health Screening 12/14/2024 RSV Immunization Adult Patie nts (1 - 1-dose 75+ series) 02/17/2036 HIB Vaccines Aged Out No longer eligi ble based on patient's age to complete this topic HPV Vaccines Aged Out No longer eligi ble based on patient's age to complete this topic Hepatitis A Vaccines Aged Out No long er eligible based on patient's age to complete this topic Hepatitis B Vaccines Aged Out No long er eligible based on patient's age to complete this topic IPV Vaccines Aged Out No longer eligi ble based on patient's age to complete this topic MMR Vaccines Aged Out No longer eligi ble based on patient's age to complete this topic Meningococcal ACWY Vaccine Aged Out N o longer eligible based on patient's age to complete this topic Meningococcal B Vaccine Aged Out No l onger eligible based on patient's age to complete this topic RSV Immunization Patients Un alanna 20 months Aged Out No longer eligible b ased on patient's age to complete this topic Varicella Vaccines Aged Out No longer eligible based on patient's age to complete this topic
[2025-03-18 08:59] LABS: Hematocrit 41.6 % (42.0-52.0); Hemoglobin 14.5 g/dl (14.0-18.0); Imm Gran Abs Auto 0.02 X10*3/uL (0.00-0.03); Imm Gran Pct Auto 0.4 % (0.0-0.4); Lymphocytes Absolute Auto 1.2 X10*3/uL (1.2-4.9); MANUAL DIFF FLAG NO; Mean Corpuscular HGB Conc 34.9 g/dl (31.0-36.0); Mean Corpuscular Hemoglobin 30.1 pg (27.0-33.0); Mean Corpuscular Volume 86.3 fL (80.0-98.0); NRBC Abs Auto 0.000 X10*3/uL (0.0-0.012); NRBC Pct Auto 0.0 /100WBC (0.0-0.2); Platelet Count 141 X10*3/uL (160-400); Red Blood Count 4.82 X10*6/uL (4.60-5.80); White Blood Count 4.8 X10*3/uL (4.8-10.8)
[2025-03-18 09:47] LABS: Alanine Aminotransferase 20 U/L (0-40); Albumin Level 4.3 g/dL (3.5-5.0); Alkaline Phosphatase 50 U/L (39-117); Anion Gap 12 (12-20); Aspartate Amino Transferase 21 U/L (5-37); Blood Urea Nitrogen 16 mg/dL (9-16); Calcium 9.4 mg/dL (8.4-10.2); Carbon Dioxide 27 mmol/L (22-29); Chloride 109 mmol/L (96-108); Cholesterol 173 mg/dL (<200); Estimated Glomerular Filt Rate > 60; HDL Cholesterol 45 mg/dL (>40); Potassium 4.7 mmol/L (3.3-5.1); Sodium 143 mmol/L (135-145); Total Protein 6.4 g/dL (6.5-8.0); Triglycerides 136 mg/dL (<150)
[2025-03-18 09:58] LABS: PSA,Total (Free>4and<10) 1.23 ng/mL (0.00-4.00)
== END 2025-03-18 07:49 | disposition home or self-care (01) ==
LOC: HO.LAB 07:48
PROVIDERS: PCP Internal Medicine; Visit Provider Internal Medicine
DX: I10 Essential (primary) hypertension (principal); E78.5 Hyperlipidemia, unspecified; Z86.0109 Personal history of other colon polyps; Z95.5 Presence of coronary angioplasty implant and graft; N42.9 Disorder of prostate, unspecified; R73.03 Prediabetes; Z12.5 Encounter for screening for malignant neoplasm of prostate
CPT/HCPCS: 36415; 80053; 80061; 83036; 84153; 85025